=== PATIENT | female | born 1935 | race Asian ===

== ENCOUNTER 2017-08-02 02:11 | Inpatient (IN) | payer MEDICARE, OTHER ==
[~2017-08-02] VITALS: Ht 152.4 cm; Wt 47.2 kg
--- NOTE | 2017-08-02 02:20 | NUR ---
PT BIB [facility] TO ER BED 5, PT C/O ABD AND LOW B/P THAT WOKE HER UP TONIGHT. PT PLACED ON VS/SERVICENOW ADMINISTRATOR DEVELOPER. PT B/P 70/31, MD PAK AT BEDSIDE FOR EVAL. PT RESP EVEN UNLABORED/NAD NOTED/SKIN WARM AND DRY/DENIES N/V/D. PT DAUGHTER AT BEDSIDE TO HELP TRANSLATE. 16G IV TO LAC USING ASEPTIC TECH, BLOOD DRAWN FOR LAB. IV FLUSHES EASILY. 20G IV TO R WRRIST STARTED WASHER MACHINE BY PARAMEDICS. PT AOX4.
[2017-08-02] MEDS ORDERED: IV NS 0.9% 500 ML BAG IV ONE (02:30)
[2017-08-02] MEDS ORDERED: ONDANSETRON HCL/PF 4 MG/2 ML VIAL IVP ONE (02:30)
[2017-08-02] MEDS ORDERED: ONDANSETRON HCL/PF 4 MG/2 ML VIAL ONE ×2 (02:38→05:38)
--- NOTE | 2017-08-02 02:42 | NUR ---
LAB AT BEDSIDE
[2017-08-02 02:47] LABS: BASOPHILS # (AUTO) 0.1 /CMM (0.0-0.2); BASOPHILS % (AUTO) 0.6 % (0.0-2.0); EOSINOPHILS # (AUTO) 0.3 /CMM (0.0-0.7); EOSINOPHILS % (AUTO) 2.8 % (0.0-6.0); HEMATOCRIT 42 % (33-45); HEMOGLOBIN 13.4 g/dL (11.5-14.8); LYMPHOCYTES # (AUTO) 1.6 /CMM (0.8-4.8); LYMPHOCYTES % (AUTO) 16.7 % (20.0-44.0); MEAN CORPUSCULAR HEMOGLOBIN 30 PG (26.0-33.0); MEAN CORPUSCULAR HGB CONC 32 g/dl (31.0-36.0); MEAN CORPUSCULAR VOLUME 94 fL (82-100); MONOCYTES # (AUTO) 0.8 /CMM (0.1-1.30); MONOCYTES % (AUTO) 8.3 % (2.0-12.0); NEUTROPHILS # (AUTO) 6.9 /CMM (1.8-8.9); NEUTROPHILS % (AUTO) 71.6 % (43.0-81.0); PLATELET COUNT (AUTO) 270 /CMM (150-450); RDW COEFFICIENT OF VARIATION 14.6 (11.5-15.0); RED BLOOD CELL COUNT(AUTO) 4.42 MIL/uL (4.0-5.2); WHITE BLOOD COUNT (AUTO) 9.7 K/uL (4.3-11.0)
--- NOTE | 2017-08-02 02:51 | NUR ---
PT TO CT VIA STRETCHER. VSS.
[2017-08-02] MEDS ORDERED: IV NS 0.9% 1,000 ML BAG IV ONE (03:00)
--- NOTE | 2017-08-02 03:06 | NUR ---
PT BACK FROM CT.
[2017-08-02 03:17] LABS: CALCIUM, SERUM 8.9 mg/dL (8.5-10.1); CARBON DIOXIDE 23 mmol/L (21-32); CHLORIDE 106 mmol/L (98-107); CREATININE 1.1 mg/dL (0.6-1.3); GLUCOSE 200 mg/dL (74-106); POTASSIUM 3.9 mmol/L (3.5-5.1); SODIUM SERUM 140 mmol/L (136-145); UREA NITROGEN, BLOOD 15 mg/dL (7-18)
[2017-08-02 03:20] LABS: INR 1.28 (0.87-1.13); PROTHROMBIN TIME 13.3 SECS (9.5-12.7)
[2017-08-02 03:22] LABS: ALANINE AMINOTRANSFERASE 95 U/L (12-78); ALKALINE PHOSPHATASE 45 U/L (46-116); ASPARTATE AMINOTRANSFERASE 26 U/L (15-37); BILIRUBIN,DIRECT 0.1 mg/dL (0.0-0.2); BILIRUBIN,TOTAL 0.4 mg/dL (0.2-1.0); LIPASE 390 U/L (73-393); TOTAL PROTEIN, SERUM 6.4 g/dL (6.4-8.2)
[2017-08-02 03:25] LABS: TROPONIN I < 0.017 ng/mL (0.00-0.056)
--- NOTE | 2017-08-02 04:05 | NUR ---
NAMAN AT BEDSIDE
--- NOTE | 2017-08-02 04:06 | NUR ---
ULTRASOUND AT BEDSIDE
--- NOTE | 2017-08-02 04:42 | NUR ---
PT TRANSFERRED TO ER BED 9
--- NOTE | 2017-08-02 04:42 | NUR ---
Ledy escobar in ED - 08/02/17 at 0556 by JACINDA PT TRANSFERRED TO ER BED 8.
[2017-08-02] MEDS ORDERED: IV NS 0.9% 250 ML IV ONE (04:49)
[2017-08-02] MEDS ORDERED: IOHEXOL-300 100 ML VIAL IV ONE (04:49)
--- NOTE | 2017-08-02 05:05 | NUR ---
PT TO CT ON HVAC TECHNICIAN WITH RN.
[2017-08-02] MEDS ORDERED: IOHEXOL-350 100 ML VIAL IV ONE (05:07)
--- NOTE | 2017-08-02 05:23 | NUR ---
PT BACK FROM CT
--- NOTE | 2017-08-02 05:27 | NUR ---
DR. PAK AT BEDSIDE SPEAKING TO PT AND FAMILY REGARDING POC.
--- NOTE | 2017-08-02 05:30 | NUR ---
LAB AT BEDSIDE FOR BLOOD DRAW.
[2017-08-02 05:36] LABS: HEMOGLOBIN 11.9 g/dL (11.5-14.8)
[2017-08-02] MEDS ORDERED: MORPHINE SULFATE INJ 10 MG/ML DISP.SYRIN ONE (05:39)
[2017-08-02] MEDS ORDERED: MORPHINE SULFATE INJ 10 MG/ML DISP.SYRIN IV ONE (06:00)
[2017-08-02] MEDS ORDERED: ONDANSETRON HCL/PF 4 MG/2 ML VIAL IV ONE (06:00)
[2017-08-02] MEDS ORDERED: FENO145T20 PO (06:09)
[2017-08-02] MEDS ORDERED: OMEP20CA10 PO (06:09)
[2017-08-02] MEDS ORDERED: SPIR25TA4 PO (06:09)
[2017-08-02] MEDS ORDERED: RIVA10TA PO (06:09)
[2017-08-02] MEDS ORDERED: ALEN35TA5 PO (06:09)
[2017-08-02] MEDS ORDERED: GLIM1TAB2 PO (06:09)
[2017-08-02] MEDS ORDERED: FLEC100T2 PO (06:09)
[2017-08-02] MEDS ORDERED: METR500T PO (06:22)
[2017-08-02] MEDS ORDERED: CIPR-262 PO (06:22)
--- NOTE | 2017-08-02 06:22 | NUR ---
PT BEING ADMIT TO ROOM 325 BED 2. REPORT GIVEN JAVAD LIGHT RN.
--- NOTE | 2017-08-02 06:25 | NUR ---
PT REFUSED IV MEDICATED, RISK AND BENEFITS EXPLAINED X3. PT STRONGLY REFUSED "PT STATES I AM NOT IN PAIN AT THIS MOMENT, I DON'T WANT THE PAIN MEDICINE". MORPHINE 6MG, ZOFRAN 4MG WASTED WITH SECOND RN MIKE.
--- NOTE | 2017-08-02 06:27 | NUR ---
RN NOTES: RECEIVED REPORT FROM MAGGIE ALCAZAR, PT BEING ADMITTED FOR HYPOTENSION, ABDOMINAL PAIN, PT FROM HOME CAME IN FOR ABDL PAIN AND LOW BP, UPON ARRIVAL 70/31, AFTER INTERVENTION BP WENT UP TO 100/64, PT HAS 16G. ON LEFT AC, AND 20G. R WRIST, PT WILL BE ADMITTED UNDER EPIC, PER REPORT MRSA SWAB DONE, HOME MEDS INPUTTED BY WAFER LINE WORKER, AWAITING FOR PT TO BE BROUGHT TO THE UNIT, PT WILL BE GOING TO 325-2.
[2017-08-02] MEDS ORDERED: ONDANSETRON HCL/PF 4 MG/2 ML VIAL IVP PRN (06:30)
[2017-08-02] MEDS ORDERED: MAGNESIUM HYDROXIDE 30 ML UDC PO PRN (06:30)
[2017-08-02] MEDS ORDERED: ENOXAPARIN SODIUM 30 MG/0.3 ML DISP.SYRIN SQ SCH (06:30)
[2017-08-02] MEDS ORDERED: ACETAMINOPHEN 325 MG TABLET PO PRN (06:30)
[2017-08-02] MEDS ORDERED: HYDROMORPHONE INJ 2 MG/ML DISP.SYRIN IV PRN (06:30)
[2017-08-02 06:35] LABS: PHOSPHORUS 2.7 mg/dL (2.5-4.9)
--- NOTE | 2017-08-02 06:45 | NUR ---
PT TRANSPORTED TO TELE [facility] BED 2 VIA STRETCHER ON PUBLICATION DESIGNER WITH RN PER ACLS PROTOCOL. VSS.
[2017-08-02 06:48] LABS: THYROID STIMULATING HORMONE 10.778 uIU/mL (0.358-3.74)
--- NOTE | 2017-08-02 06:57 | NUR ---
RN NOTES: VS TAKEN AND RECORDED, FAMILY AT BED SIDE, PT A/O X3, ON RA RESPIRATION EVEN AND UNLABORED, STATED HER ABDOMINAL PAIN IS 3/10, ORIENTED PT TO UNIT POLICY AND HOURLY ROUNDING, SINUS RHYTHM HR 65, SAFETY PRECAUTIONS FOR FALL INITIATED CALL LIGHT IN REACH, WILL ENDORSE TO DAY RN FOR COMPLETION OF ADMISSION
[2017-08-02 06:59] VITALS: BP 118/59
--- NOTE | 2017-08-02 07:45 | NUR ---
INTEGRATED MARKETING MANAGER OPENING NOTES RECEIVED REPORT FROM CHACE NOWAK THIS MORNING. PT IN BED AWAKE IN NO ACUTE SIGNS OF DISTRESS WITH FAMILY AT BEDSIDE. A/O X 3, VERBALLY RESPONSIVE AND ABLE TO TRANSFER FROM BED TO BEDSIDE COMMODE WITH ASSISTANCE AT THIS TIME. PT ADMITTED WITH DX OF ABDOMINAL PAIN WITH SIGNIFICANT DIAGNOSIS OF GERD, CHF, CAD, AFIB, DM, OSTEOPOROSIS, HTN, HLD, DIVERTRICULITIS. PT ON TELE-MONITORING WITH CURRENT READING OF SR AND HR OF 59, NO C/O CHEST PAIN OR ABDOMINAL PAIN AT THIS TIME. PT WEARING B/L HEARING AIDS DUE TO HARD OF HEARING. ON ROOM AIR, BREATHING EVEN WITH NO S/S OF SOB NOTED. BELONGINGS LIST DONE AND FILED ON CHART. V/S TAKEN AND RECORDED. PT SKIN IS INTACT. PT WITH IV ACCESS ON LEFT AC G#16 AND RIGHT WRIST g#18, WILL START IVF OF NS AT 75ML/HR PRN. PNA AND FLU VACCINES ARE UPDATED. KEPT BED IN LOW/LOCKED POSITION WITH SIDE-RAILS UP X2. CALL LIGHT WITHIN REACH. ALL SAFETY MEASURES MAINTAINED. WILL CONTINUE TO MONITOR PT ACCORDINGLY.
[2017-08-02 08:00] VITALS: BP 118/59
[2017-08-02] MEDS ORDERED: RIVAROXABAN 10 MG TABLET PO SCH (09:00)
[2017-08-02] MEDS ORDERED: Medication Not On Formulary EA (Omeprazole 1 CAP) PO SCH (09:00)
[2017-08-02] MEDS ORDERED: ENOXAPARIN SODIUM 40 MG/0.4 ML DISP.SYRIN SQ SCH (09:00)
[2017-08-02] MEDS: FAMOTIDINE/PF INJ 20 MG/2 ML VIAL IV SCH (09:57)
--- NOTE | 2017-08-02 10:28 | NUR ---
RN NOTES CALLED DR AREVALO AND VERIFIED ORDERS OF LOVENOX 40MG AND XARELTO 10MG IF TO BE GIVEN BOTH TODAY. HE ORDER TO DISCONTINUE LOVENOX AND START ON XARELTO. PHARMACY MADE AWARE. WILL CONTINUE TO MONITOR
[2017-08-02] MEDS: SPIRONOLACTONE 25 MG TABLET PO SCH (10:33)
[2017-08-02] MEDS: GLIMEPIRIDE 1 MG TABLET PO SCH (10:34)
[2017-08-02] MEDS: FENOFIBRATE NANOCRYS (145 MG) 145 MG TABLET PO SCH (10:34)
[2017-08-02] MEDS: IV NS 0.9% 1,000 ML IV PRN (10:44)
--- NOTE | 2017-08-02 13:20 | NUR ---
RN NOTES PER DR OGLESBY, PT FOR POSSIBLE EGD TOMORROW (08/03/2017). PROCEDURE WAS EXPLAINED BY DR OGLESBY TO PT AND FAMILY MEMBERS AND THEY VERBALIZED UNDERSTANDING. EXPLAINED ALSO THAT PT WILL BE NPO AFTER MIDNIGHT. WILL CONTINUE TO MONITOR.
--- NOTE | 2017-08-02 13:28 | NUR ---
RN NOTES FAMILY ASKED IF PT WILL STILL CONTINUE ABX METRONIDAZOLE 500MG TAB TID AND CIPRO 500MG TAB. DR OGLESBY ON UNIT AND SAID TO CONTINUE SAID ANTIBIOTICS. DR OGLESBY SAID ALSO TO NOT GIVE XARELTO TODAY AND NPO POST MIDNIGHT FOR POSSIBLE EGD TOMORROW ( 07/03/2017). WILL CONTINUE TO MONITOR
[2017-08-02] MEDS: METRONIDAZOLE 500 MG TABLET PO SCH ×2 (14:06→21:11)
[2017-08-02] MEDS: CIPROFLOXACIN HCL 250 MG TABLET PO SCH ×2 (14:07→21:11)
[2017-08-02 16:00] VITALS: BP_SYST 123; BP_DIAS 67; BP_DIAS 69
[2017-08-02 16:24] VITALS: BP 122/62
--- NOTE | 2017-08-02 16:27 | NUR ---
RN NOTES PT COMPLAINTS OF N & V X1 WITH UNDIGESTED FOOD IN SMALL AMOUNT, PRN ZOFRAN 4MG IV GIVEN. WILL MONITOR EFFECTIVENESS OF MEDICATION.
[2017-08-02] MEDS ORDERED: RIVAROXABAN 15 MG TABLET PO SCH (17:00)
--- NOTE | 2017-08-02 17:17 | NUR ---
RN NOTES URINE SPECIMEN COLLECTED, CALLED LAB TO PICK -UP.
--- NOTE | 2017-08-02 17:51 | NUR ---
RN NOTES PT SIGNED CONSENT FOR POSSIBLE EGD TOMORROW. CONSENT FLAGGED ON HER CHART. WILL ENDORSED TO SOCK EXAMINER NURSE.
--- NOTE | 2017-08-02 18:49 | NUR ---
NAPHTHALENE STILL OPERATOR CLOSING NOTES PATIENT AWAKE AND RESTING AT MODERATE HIGH BACKREST IN BED. A/O X3, SAME ABLE TO VERBALIZED NEEDS AND CONCERNS. NO FURTHER C/O N & V AT THIS TIME. ON TELE-MONITORING WITH CURRENT READING OF SR AND HR OF 65, NO C/O CHEST PAIN VOICED. ON ROOM AIR, BREATHING EVEN AND UNLABORED. IV ACCESS ON LEFT AC G#16 AND RIGHT WRIST G#20 INTACT AND PATENT, IVF OF NS @ 75ML/HR RUNNING TO LEFT AC, NO SIGNS OF INFILTRATION NOTED. HOB KEPT ELEVATED. BED IN LOW/LOCKED POSITION, CALL LIGHT WITHIN REACH. PT FOR GI CONSULT AND POSSIBLE EGD TOMORROW, NPO POST MIDNIGHT TO BE ENFORCED. ALL NEEDS AND CARE ATTENDED WELL. WILL ENDORSED TO DATA STORAGE SPECIALIST NURSE FOR LOLLY.
[2017-08-02 19:11] LABS: APPEARANCE,URINE TURBID (CLEAR); BILIRUBIN,URINE NEGATIVE (NEGATIVE); BLOOD, URINE NEGATIVE Ery/uL (NEGATIVE); COLOR,URINE DARK YELLO (YELLOW); KETONES,URINE NEGATIVE (NEGATIVE); LEUKOCYTE ESTERASE ,URINE NEGATIVE (NEGATIVE); NITRITE, URINE POSITIVE (NEGATIVE); PH,URINE 5.5 (5.0-8.0); PROTEIN,URINE TRACE mg/dl (NEGATIVE); UGLUCOSE TRACE mg/dL (NEGATIVE); UROBILINOGEN,URINE 0.2 EU/dL (0.2)
[2017-08-02 19:23] LABS: BACTERIA,URINE Moderate /HPF (None Seen); RBC,URINE 0-2 /HPF (0-2); SQUAMOUS EPITHELIAL CELL,UR Rare /HPF (None Seen); WBC,URINE 0-2 /HPF (0-3)
[2017-08-02 19:24] LABS: URINE AMORPHOUS URATE Many /HPF (None Seen)
--- NOTE | 2017-08-02 19:30 | NUR ---
PATTERNMAKER SAMPLE OPENING NOTES: PATIENT IN BED EATING DINNER, AOX3, SPEAKS IN HAITIAN, ON ROOM AIR, BREATHING EVEN AND UNLABORED. APPEARS CALM AND IN NO DISTRESS, DENIES ANY NAUSEA AT THIS TIME, ONLY SOME MILD EPIGASTRIC PAIN AT THIS TIME, SCALED AT 3-4/10. PIV OVER LAC G16 INTACT AND PATENT TO FLUSH, R WRIST G 20 INTACT AND INFUSING WELL WITH NS RUNNING AT 75 ML/HR. ON TELE MONITORING: SR RATE OF 67. PROVIDED FOR COMFORT AND SAFETY. BED IN LOWEST AND LOCKED POSITION, CALL LIGHT WITHIN REACH. WILL CONT TO MONITOR.
--- NOTE | 2017-08-02 19:50 | NUR ---
RN NOTES: CLEMENT CASTILLO FOR EVELIA MUNGUIA, CAME TO SEE PT. FAMILY AT BEDSIDE.
[2017-08-02 20:00] VITALS: BP 136/70
--- NOTE | 2017-08-02 20:23 | NUR ---
RN NOTES: PER CLEMENT CASTILLO (GI), EGD WILL NOT BE DONE TOMORROW, MOST LIKELY WILL BE DONE ON THURSDAY. PATIENT CAN CONTINUE DIET UNTIL TOMORROW, WHEN SHE WILL BE NPO POST MN.
--- NOTE | 2017-08-02 21:30 | NUR ---
RN NOTES: SAW CLEMENT CASTILLO NOTES IN [facility], FOR POSSIBLE EGD IN AM. CHARGE NURSE MADE AWARE RE WHAT WAS SAID VERBALLY BY CONTINUOUS ABSORPTION PROCESS OPERATOR AND WHAT WAS WRITTEN. PATIENT TO BE NPO POST MN FOR NOW.
[2017-08-03] VITALS (9 sets, daily range): BP systolic 85–118; BP diastolic 60–74
[2017-08-03] MEDS: IV NS 0.9% 1,000 ML IV PRN (00:06)
[2017-08-03] MEDS: METRONIDAZOLE 500 MG TABLET PO SCH ×3 (05:00→21:53)
[2017-08-03 06:34] LABS: BASOPHILS # (AUTO) 0.1 /CMM (0.0-0.2); BASOPHILS % (AUTO) 1.3 % (0.0-2.0); EOSINOPHILS # (AUTO) 0.2 /CMM (0.0-0.7); EOSINOPHILS % (AUTO) 3.2 % (0.0-6.0); HEMATOCRIT 37 % (33-45); HEMOGLOBIN 12.3 g/dL (11.5-14.8); LYMPHOCYTES % (AUTO) 14.8 % (20.0-44.0); MEAN CORPUSCULAR HEMOGLOBIN 32 PG (26.0-33.0); MEAN CORPUSCULAR HGB CONC 34 g/dl (31.0-36.0); MEAN CORPUSCULAR VOLUME 95 fL (82-100); MONOCYTES # (AUTO) 0.7 /CMM (0.1-1.30); NEUTROPHILS # (AUTO) 4.8 /CMM (1.8-8.9); NEUTROPHILS % (AUTO) 70.7 % (43.0-81.0); PLATELET COUNT (AUTO) 261 /CMM (150-450); RDW COEFFICIENT OF VARIATION 14.9 (11.5-15.0); RED BLOOD CELL COUNT(AUTO) 3.89 MIL/uL (4.0-5.2); WHITE BLOOD COUNT (AUTO) 6.8 K/uL (4.3-11.0)
--- NOTE | 2017-08-03 06:43 | NUR ---
TERMITE CONTROL TECHNICIAN CLOSING NOTES: PATIENT IN BED, AOX3, ON ROOM AIR, BREATHING EVEN AND UNLABORED. APPEARS CALM AND IN NO DISTRESS. ON TELE MONITOR: SR AT RATE OF 60S. PIV OVER LAC G 16 INTACT AND PATENT, INFUSING WELL WITH NS RUNNING AT 75 ML/HR. DUE MEDS GIVEN. PROVIDED FOR COMFORT AND SAFETY. BED IN LOWEST AND LOCKED POSITION, SIDERAILS UPX2. MAINTAINED ON NPO POST MN. WILL ENDORSE TO AM RN FOR LOLLY.
[2017-08-03 06:50] LABS: ALANINE AMINOTRANSFERASE 74 U/L (12-78); ALBUMIN 2.9 g/dL (3.4-5.0); ALKALINE PHOSPHATASE 40 U/L (46-116); ASPARTATE AMINOTRANSFERASE 29 U/L (15-37); BILIRUBIN,TOTAL 0.4 mg/dL (0.2-1.0); CALCIUM, SERUM 8.4 mg/dL (8.5-10.1); CARBON DIOXIDE 22 mmol/L (21-32); CHLORIDE 108 mmol/L (98-107); GLUCOSE 87 mg/dL (74-106); MAGNESIUM 1.9 mg/dL (1.8-2.4); PHOSPHORUS 2.6 mg/dL (2.5-4.9); POTASSIUM 3.9 mmol/L (3.5-5.1); SODIUM SERUM 139 mmol/L (136-145); UREA NITROGEN, BLOOD 16 mg/dL (7-18)
[2017-08-03 06:51] LABS: TROPONIN I 0.199 ng/mL (0.00-0.056)
--- NOTE | 2017-08-03 06:56 | NUR ---
RN NOTES: CALLED DR AZEVEDO'S OFFICE TO VERIFY IF PATIENT WILL HAVE EGD TODAY OR TOMORROW ( SAID BY SWEATBAND DRUMMER). AWAITING CALL BACK. PATIENT ON NPO SINCE MN.
--- NOTE | 2017-08-03 07:30 | NUR ---
APPRENTICESHIP CONSULTANT NOTES PT IN BED, ASLEEP, EASY TO AROUSE, NO SIGN OF PAIN OR ANY DISCOMFORT, RESPIRATIONS NORMAL, CALL LIGHT WITHIN REACH.
[2017-08-03] MEDS: GLIMEPIRIDE 1 MG TABLET PO SCH (09:02)
[2017-08-03] MEDS: FENOFIBRATE NANOCRYS (145 MG) 145 MG TABLET PO SCH (09:02)
[2017-08-03] MEDS: CIPROFLOXACIN HCL 250 MG TABLET PO SCH ×2 (09:02→21:53)
[2017-08-03] MEDS: FAMOTIDINE/PF INJ 20 MG/2 ML VIAL IV SCH (09:02)
[2017-08-03] MEDS: FUROSEMIDE 20 MG/2 ML VIAL IV SCH ×3 (09:02→17:00)
[2017-08-03] MEDS: LEVOTHYROXINE SODIUM 125 MCG TABLET PO SCH (09:03)
[2017-08-03] MEDS: POTASSIUM CHLORIDE 20 MEQ TAB.PRT.SR PO SCH (09:03)
[2017-08-03] MEDS: SPIRONOLACTONE 25 MG TABLET PO SCH (09:03)
--- NOTE | 2017-08-03 14:58 | NUR ---
JBOSS ARCHITECT NOTES PT'S TELE AFIB NOW, HR BET 110-125 WITH EPISODES 135-140 FOR FEW SECONDS, PT IN BED, NO COMPLAINT OF CHEST PAIN, NO SHORTNESS OF BREATH, BP 107/61, SABINO PROFESSOR OF POULTRY SCIENCE INFORMED, ORDERED TO GET EKG NOW AND REPEAT TROP AFTER SIX HOURS, NOTED AND CARRIED OUT.
[2017-08-03] MEDS ORDERED: AMIODARONE 150 MG in IV D5W 100 ML IV ONE (16:00)
[2017-08-03] MEDS ORDERED: AMIODARONE 900 MG in IV D5W 482 ML IV PRN (16:00)
--- NOTE | 2017-08-03 16:30 | NUR ---
VENTILATING ENGINEER NOTES SABINO BASKETBALL PLAYER AND DR. AREVALO INFORMED OF PT'S ELEVATED HR AND LATEST TROPONIN AND EKG RESULT, DR. AREVALO ORDERED AMIODARONE BOLUS AND DRIP AND TO TRANSFER PT TO [facility], PT REMAINS CALM, NO COMPLAINT OF CHEST PAIN, NO SHORTNESS OF BREATH, VITAL SIGNS REMAIN STABLE, INFORMED OF TRANSFER ORDERS, DAUGHTER BRYAN INFORMED THRU VOICEMAIL, REPORT GIVEN TO SHAISTA DRY PAN FEEDER, TRANSFERRED PT TO [facility] ROOM 259 IN STABLE CONDITION WITH ALL BELONGINGS.
--- NOTE | 2017-08-03 16:30 | NUR ---
ALARM SECURITY OR SURVEILLANCE MONITOR NOTE Received report from Telemetry and patient arrived on unit at 16:30 accompanied by RN. Patient alert and oriented. Atrial fibrillation at 122 bpm. Gave amiodarone bolus over 10 minutes and started amidarone drip at 17:00 at 33.3 ml/hr. Lasix held due to SBP 85. Physical assessment done. Daughter came in shortly after patient arrived. Will continue to monitor BP and HR.
--- NOTE | 2017-08-03 18:40 | NUR ---
DIAL MAKER NOTE Report was given to [facility] RN and patient was transferred to Room 117 at 18:30 on monitor via bed. Daughter was with her during transfer.
--- NOTE | 2017-08-03 19:00 | NUR ---
JO[facility]/RN: Assisted with pt transfer to [facility] unit. A-fib 110's on monitor. IV x2 DC'd, pt c/o pain upon flushing. New IV HL inserted R FA #20 x1 attempt. Amiodarone drip infusing well. Oriented to POC, call light within reach. Will endorse care to PM RN for LOLLY.
--- NOTE | 2017-08-03 19:20 | NUR ---
RN INITIAL NOTE RECEIVED PT IN NO ACUTE DISTRESS IN BED. PT IS A/O X 4 AND ABLE TO MAKE NEEDS KNOWN. PT IS TAGOLOG SPEAKING BUT IS ABLE TO UNDERSTAND SOME ALBANIAN. PT IS ON RA AND TOLERATING WELL WITH O2 SAT @ 100%. PT IS ON TELE WITH UNCONTROLLED AFIB @ 120-130. PT IS CURRENTLY ON AMIODARONE @ 0.998 MG/MIN. PT HAS RFA 20G THAT IS CLEAN DRY INTACT AND PATENT WITH AMIODARONE DRIP. BED IN LOW LOCK POSITION WITH RIALS UP X 2. CALL LIGHT WITHIN REACH AND ALL SAFETY MEASURES ENSURED AND CARRIED OUT. WILL CONTINUE TO MONITOR PT.
[2017-08-03] MEDS: MAG HYDROX/AL HYDROX/SIMETH 30 ML UDC PO PRN (20:19)
[2017-08-04] VITALS (9 sets, daily range): BP systolic 91–111; BP diastolic 55–72
[2017-08-04] MEDS: METRONIDAZOLE 500 MG TABLET PO SCH ×3 (05:14→20:58)
[2017-08-04 05:30] LABS: BASOPHILS # (AUTO) 0.1 /CMM (0.0-0.2); BASOPHILS % (AUTO) 0.7 % (0.0-2.0); EOSINOPHILS # (AUTO) 0.2 /CMM (0.0-0.7); EOSINOPHILS % (AUTO) 2.6 % (0.0-6.0); HEMATOCRIT 41 % (33-45); HEMOGLOBIN 13.4 g/dL (11.5-14.8); LYMPHOCYTES # (AUTO) 1.2 /CMM (0.8-4.8); LYMPHOCYTES % (AUTO) 14.2 % (20.0-44.0); MEAN CORPUSCULAR HEMOGLOBIN 31 PG (26.0-33.0); MEAN CORPUSCULAR HGB CONC 33 g/dl (31.0-36.0); MEAN CORPUSCULAR VOLUME 93 fL (82-100); MONOCYTES % (AUTO) 11.2 % (2.0-12.0); NEUTROPHILS # (AUTO) 6.3 /CMM (1.8-8.9); NEUTROPHILS % (AUTO) 71.3 % (43.0-81.0); PLATELET COUNT (AUTO) 307 /CMM (150-450); RDW COEFFICIENT OF VARIATION 14.9 (11.5-15.0); RED BLOOD CELL COUNT(AUTO) 4.37 MIL/uL (4.0-5.2); WHITE BLOOD COUNT (AUTO) 8.8 K/uL (4.3-11.0)
[2017-08-04 05:48] LABS: ALANINE AMINOTRANSFERASE 63 U/L (12-78); ALBUMIN 2.9 g/dL (3.4-5.0); ALKALINE PHOSPHATASE 45 U/L (46-116); ASPARTATE AMINOTRANSFERASE 23 U/L (15-37); BILIRUBIN,TOTAL 0.5 mg/dL (0.2-1.0); CARBON DIOXIDE 26 mmol/L (21-32); CHLORIDE 107 mmol/L (98-107); GLUCOSE 121 mg/dL (74-106); PHOSPHORUS 2.5 mg/dL (2.5-4.9); SODIUM SERUM 141 mmol/L (136-145); TOTAL PROTEIN, SERUM 6.2 g/dL (6.4-8.2); UREA NITROGEN, BLOOD 13 mg/dL (7-18)
[2017-08-04 05:50] LABS: TROPONIN I 0.093 ng/mL (0.00-0.056)
--- NOTE | 2017-08-04 06:19 | NUR ---
RN CLOSING NOTE PT REMAINS IN NO ACUTE DISTRESS IN BED. PT DID NOT HAVE ANY SIGNIFICANT CHANGE IN CONDITION DURING SHIFT. ALL NEEDS MET, ALL ORDERS CARRIED OUT. WILL ENDORSE CARE TO AM RN FOR CONTINUITY OF CARE.
--- NOTE | 2017-08-04 07:05 | NUR ---
RN INITIAL NOTES RECEIVED PT AWAKE, A/OX4. NO RESPIRATORY DISTRESS NOTED. NO SOB NOTED. ON ROOM AIR. DENIES ANY PAIN. ON TELE MONITOR, A.FIB AT 115. PT ON AMIO DRIP. IV LINE IN PLACE. SKIN INTACT. PLAN FOR EGD ONCE TROPONIN TRENDS DOWN PER DR. AREVALO AND DR. AZEVEDO. PT COMFORTABLE. CALL LIGHT WITHIN REACH. WILL MONITOR.
[2017-08-04] MEDS: GLIMEPIRIDE 1 MG TABLET PO SCH (08:14)
[2017-08-04] MEDS: LEVOTHYROXINE SODIUM 125 MCG TABLET PO SCH (08:14)
[2017-08-04] MEDS: POTASSIUM CHLORIDE 20 MEQ TAB.PRT.SR PO SCH (08:14)
[2017-08-04] MEDS: FUROSEMIDE 20 MG/2 ML VIAL IV SCH ×2 (08:14→16:59)
[2017-08-04] MEDS: FENOFIBRATE NANOCRYS (145 MG) 145 MG TABLET PO SCH (08:15)
[2017-08-04] MEDS: CIPROFLOXACIN HCL 250 MG TABLET PO SCH ×2 (08:15→20:58)
[2017-08-04] MEDS: SPIRONOLACTONE 25 MG TABLET PO SCH (08:15)
[2017-08-04] MEDS: FAMOTIDINE/PF INJ 20 MG/2 ML VIAL IV SCH (08:15)
--- NOTE | 2017-08-04 10:10 | NUR ---
RN NOTES SEEN AND EXAMINED BY DR. AREVALO. PT ON AMIO DRIP. PT STILL ON A.FIB UNCONTROLLED. AWARE OF CURRENT LAB VALUES. TROPONIN 0.093, TRENDING DOWN. SPOKE WITH DR. AZEVEDO AND CLEARED PT FOR EGD. ORDERS MADE, NOTED AND CARRIED OUT. PT AWARE.
--- NOTE | 2017-08-04 10:30 | NUR ---
RN NOTES PT LEFT FOR EGD VIA BED. PT A/OX4. DENIES ANY PAIN. IV LINE IN PLACE. VITAL SIGNS WNL. LEFT IN STABLE CONDITION.
[2017-08-04] MEDS: PANTOPRAZOLE 40 MG TABLET.DR PO SCH (11:50)
[2017-08-04] MEDS: SUCRALFATE 1 G TABLET PO SCH ×3 (11:50→20:58)
[2017-08-04] MEDS: METOPROLOL TARTRATE 50 MG TABLET PO SCH ×2 (11:50→17:02)
--- NOTE | 2017-08-04 11:58 | NUR ---
RN NOTES PT BACK FROM EGD. PT A/OX4. ON ROOM AIR. NO SOB NOTED. DENIES ANY PAIN. VS WNL. WILL ADVANCE DIET TOLERATED. WILL MONITOR
--- NOTE | 2017-08-04 12:00 | NUR ---
RN NOTES SEEN AND EXAMINED BY DR. RODRIGUEZ. AWARE OF CURRENT LAB VALUES. NO ORDER MADE
[2017-08-04] MEDS ORDERED: GUAIFENESIN/CODEINE 10 ML UDC PO PRN (15:30)
[2017-08-04] MEDS: MAG HYDROX/AL HYDROX/SIMETH 30 ML UDC PO PRN (16:29)
--- NOTE | 2017-08-04 18:28 | NUR ---
RN CLOSING NOTES PT REMAINS STABLE. NO SIGNIFICANT CHANGE NOTED. DENIES ANY PAIN. IV LINE IN PLACE. ASSISTED TO BATHROOM. PT CONTINENT. ALL NEEDS ATTENDED AND MET. KEPT COMFORTABLE. CALL LIGHT WITHIN REACH. WILL ENDORSE FOR CONTINUITY OF CARE.
--- NOTE | 2017-08-04 20:37 | NUR ---
RN NOTE. INITIAL ASSESSMENT. RECEIVED THE PT REST ON THE BED. AWAKE, ALERT, FOLLOW COMMANDS. MOTION STUDY ANALYST SHOWING AFIB. PT ON ROOM AIR. SAT 98%. IV RT HAND 20G. SALINE LOCK. TURN AND REPOSITION PT INDEPENDENT. WILL CONTINUE TO MONITOR VITALS.
[2017-08-04] MEDS: HYDROCODONE/APAP 5/325MG 1 EACH TABLET PO PRN (20:59)
[2017-08-05] VITALS: BP_SYST 83; BP_SYST 90; BP_DIAS 50; BP_DIAS 57
--- NOTE | 2017-08-05 00:53 | NUR ---
RN NOTE LOPRESSOR NOT GIVEN. BP 90/50.
--- NOTE | 2017-08-05 03:09 | NUR ---
AM CARE. ORAL CARE, BED BATH GIVEN. HOB ELEVATED. PT ON ROOM AIR. SAT 97%. NO ACUTE DISTRESS NOTED. SHANK TURNER SHOWING AFIB, HPB ELEVATED.WILL CONTINUE TO MONITOR VITALS.
[2017-08-05 04:00] VITALS: BP 92/55
[2017-08-05] MEDS: METRONIDAZOLE 500 MG TABLET PO SCH ×3 (05:01→20:05)
[2017-08-05] MEDS: METOPROLOL TARTRATE 50 MG TABLET PO SCH ×5 (06:00→23:19)
--- NOTE | 2017-08-05 06:17 | NUR ---
LOPRESSOR NOT GIVEN BP 90/55
[2017-08-05 08:00] VITALS: BP 99/50
--- NOTE | 2017-08-05 08:05 | NUR ---
RN NOTE LEFT MESSAGE FOR DR AREVALO REGARDING PT HR 120S-130S AFIB, BP 99/50 MMHG. WILL MONITOR PT.
[2017-08-05] MEDS: FUROSEMIDE 20 MG/2 ML VIAL IV SCH ×2 (08:29→16:25)
[2017-08-05] MEDS: GLIMEPIRIDE 1 MG TABLET PO SCH (08:29)
[2017-08-05] MEDS: FAMOTIDINE/PF INJ 20 MG/2 ML VIAL IV SCH (08:29)
[2017-08-05] MEDS: SPIRONOLACTONE 25 MG TABLET PO SCH (08:30)
[2017-08-05] MEDS: FENOFIBRATE NANOCRYS (145 MG) 145 MG TABLET PO SCH (08:30)
[2017-08-05] MEDS: POTASSIUM CHLORIDE 20 MEQ TAB.PRT.SR PO SCH (08:30)
[2017-08-05] MEDS: SUCRALFATE 1 G TABLET PO SCH ×4 (08:30→21:12)
[2017-08-05] MEDS: LEVOTHYROXINE SODIUM 125 MCG TABLET PO SCH (08:30)
[2017-08-05] MEDS: CIPROFLOXACIN HCL 250 MG TABLET PO SCH ×2 (08:33→20:05)
[2017-08-05] MEDS: PANTOPRAZOLE 40 MG TABLET.DR PO SCH (08:34)
[2017-08-05] MEDS ORDERED: DIGOXIN INJ 0.5 MG/2 ML AMPUL IV STA (09:25)
[2017-08-05] MEDS: HYDROCODONE/APAP 5/325MG 1 EACH TABLET PO PRN (11:13)
[2017-08-05 12:00] VITALS: BP_SYST 98; BP_DIAS 51; BP_DIAS 54
[2017-08-05] MEDS ORDERED: IV NS 0.9% 500 ML BAG IV ONE (14:00)
[2017-08-05] MEDS: MAG HYDROX/AL HYDROX/SIMETH 30 ML UDC PO PRN ×2 (15:02→20:03)
[2017-08-05 16:00] VITALS: BP 99/45
[2017-08-05] MEDS: DIGOXIN INJ 0.5 MG/2 ML AMPUL IV SCH ×2 (16:18→21:13)
[2017-08-05] MEDS ORDERED: RIVAROXABAN 15 MG TABLET PO SCH (17:00)
[2017-08-05] MEDS ORDERED: AMIODARONE 900 MG in IV D5W 482 ML IV PRN (18:30)
--- NOTE | 2017-08-05 19:50 | NUR ---
PLYWOOD LAYUP LINE BACK FEEDER INITIAL NOTE PT IN NO ACUTE DISTRESS AT THIS TIME. ON TELE WITH HR OF ST 100-110. A/O X 3 AND ABLE TO MAKE NEEDS KNOWN. PT HAS A RFA 22G THAT IS LEAN DRY AND INTACT. WILL CONTINUE TO MONITOR HR ON TELE. COMFORT AND SAFETY MEASURES TO BE ENSURED DURING THE SHIFT. WILL CONTINUE TO MONITOR FOR CHANGES.
[2017-08-05 20:00] VITALS: BP 97/59
[2017-08-06] VITALS: BP 100/62
--- NOTE | 2017-08-06 00:42 | NUR ---
LOPRESSOR NOT GIVEN. BP 100/54.
[2017-08-06 04:00] VITALS: BP 96/60
[2017-08-06] MEDS: METOPROLOL TARTRATE 50 MG TABLET PO SCH ×2 (05:01→12:00)
[2017-08-06] MEDS: METRONIDAZOLE 500 MG TABLET PO SCH ×2 (05:22→12:10)
[2017-08-06] MEDS: LEVOTHYROXINE SODIUM 125 MCG TABLET PO SCH (06:46)
[2017-08-06] MEDS: PANTOPRAZOLE 40 MG TABLET.DR PO SCH (06:46)
[2017-08-06] MEDS: SUCRALFATE 1 G TABLET PO SCH ×2 (06:46→12:11)
[2017-08-06 07:13] LABS: BASOPHILS % (AUTO) 0.3 % (0.0-2.0); EOSINOPHILS # (AUTO) 0.1 /CMM (0.0-0.7); EOSINOPHILS % (AUTO) 0.9 % (0.0-6.0); HEMATOCRIT 45 % (33-45); HEMOGLOBIN 14.9 g/dL (11.5-14.8); LYMPHOCYTES # (AUTO) 1.2 /CMM (0.8-4.8); LYMPHOCYTES % (AUTO) 9.8 % (20.0-44.0); MEAN CORPUSCULAR HEMOGLOBIN 31 PG (26.0-33.0); MEAN CORPUSCULAR HGB CONC 33 g/dl (31.0-36.0); MEAN CORPUSCULAR VOLUME 93 fL (82-100); MONOCYTES % (AUTO) 8.5 % (2.0-12.0); NEUTROPHILS # (AUTO) 9.5 /CMM (1.8-8.9); NEUTROPHILS % (AUTO) 80.5 % (43.0-81.0); PLATELET COUNT (AUTO) 303 /CMM (150-450); RDW COEFFICIENT OF VARIATION 14.7 (11.5-15.0); WHITE BLOOD COUNT (AUTO) 11.9 K/uL (4.3-11.0)
[2017-08-06 07:34] LABS: CALCIUM, SERUM 8.7 mg/dL (8.5-10.1); CARBON DIOXIDE 25 mmol/L (21-32); CHLORIDE 102 mmol/L (98-107); GLUCOSE 120 mg/dL (74-106); POTASSIUM 4.2 mmol/L (3.5-5.1); SODIUM SERUM 137 mmol/L (136-145); UREA NITROGEN, BLOOD 15 mg/dL (7-18)
--- NOTE | 2017-08-06 07:36 | NUR ---
DOOR TO DOOR LEAD GENERATION NOTE PATIENT IN BED , RESTING COMFORTABLY AT THIS TIME , ON TELE MONITOR AFIB HR 92 . RESPIRATION EVEN UNLABORED , BED IN LOWEST AD LOCKED POSITION , CALL LIGHT WITHIN REACH. RT FA HL INTACT, NO S\S INFECTION NOTED ,NO C\O PAIN OR DISCOMFORT AT THIS TIME .WILL CONT TO MONITOR CLOSELY
[2017-08-06 08:00] VITALS: BP 101/57
[2017-08-06] MEDS: GLIMEPIRIDE 1 MG TABLET PO SCH (08:26)
[2017-08-06] MEDS: SPIRONOLACTONE 25 MG TABLET PO SCH (08:27)
[2017-08-06] MEDS: CIPROFLOXACIN HCL 250 MG TABLET PO SCH (08:27)
[2017-08-06] MEDS: FENOFIBRATE NANOCRYS (145 MG) 145 MG TABLET PO SCH (08:28)
[2017-08-06] MEDS: POTASSIUM CHLORIDE 20 MEQ TAB.PRT.SR PO SCH (08:28)
[2017-08-06] MEDS: FAMOTIDINE/PF INJ 20 MG/2 ML VIAL IV SCH (08:29)
[2017-08-06] MEDS: FUROSEMIDE 20 MG/2 ML VIAL IV SCH (08:33)
[2017-08-06] MEDS ORDERED: Rivaroxaban PO (09:59)
[2017-08-06] MEDS ORDERED: PANT40TA2 PO (09:59)
[2017-08-06] MEDS ORDERED: SUCR1TAB PO (09:59)
[2017-08-06 12:00] VITALS: BP 93/61
--- NOTE | 2017-08-06 12:19 | NUR ---
KNITTED GOODS SHAPER NOTE SEEN BY DR EDMOND WITH ORDER TO D\C HOME WIT HOME HEALTH ,ORDER CARRIED OUR
[2017-08-06] MEDS ORDERED: Digoxin PO (12:21)
[2017-08-06] MEDS ORDERED: DIGOXIN 0.25 MG TABLET PO SCH (13:00)
--- NOTE | 2017-08-06 14:00 | NUR ---
IMPREGNATING TANK OPERATOR NOTE PER DR BYERS ORDER OK TO DISCHARGE HOME WITH HOME HEALTH ,COLE REDRAWER NOTIFIED, WILL BE [facility] , ALL INFORMATION GIVEN TO FOLLOW UP APPOINTMENTS ,AND HOME HEALTH BY REDRAWER COLE . INSTRUCTED TO FOLLOW UP WITH DR AREVALO, PRIMARY CARE DOCTOR AND DR JOLLY ALTAMIRANO , PHONE NUMBER GIVEN , NEW PX GIVEN EXPLAINED ABOUT NEW MEDS AND POSSIBLE SIDE EFFECTS, TELE REMOVED , BELONGING SIGNED BY SON IN [facility] , MEDS FROM PHARMACY GIVEN TO HIM , HL REMOVED ,NO BLEEDING NOTED ,WENT TO [facility] ON W\C WITH STABLE CONDITION ACCOMPANIED BY DROP CLIPPER AND SON IN [facility]
[2017-08-07] MEDS ORDERED: ALENDRONATE 70 MG TABLET PO SCH (07:30)
== END 2017-08-06 16:07 | disposition home health service (06) | DRG 383 ==
LOC: ER 02:13 → TELE 06:18 → ICU 08-03 16:11 → TELE-TD 08-03 18:16 → TELE1 08-04 11:02
PROVIDERS: ADMIT Nurse Practitioner Acute Care; ATTEND Nurse Practitioner Acute Care
PROC: 0DD78ZX Extraction of Stomach, Pylorus, Via Natural or Artificial Opening Endoscopic, Diagnostic (ICD-10-PCS; principal; 2017-08-04 11:10)
DX: K25.9 Gastric ulcer, unspecified as acute or chronic, without hemorrhage or perforation (principal); I21.4 Non-ST elevation (NSTEMI) myocardial infarction; D68.59 Other primary thrombophilia; D68.9 Coagulation defect, unspecified; I50.32 Chronic diastolic (congestive) heart failure; I11.0 Hypertensive heart disease with heart failure; E27.8 Other specified disorders of adrenal gland; K57.90 Diverticulosis of intestine, part unspecified, without perforation or abscess without bleeding; K21.9 Gastro-esophageal reflux disease without esophagitis; E03.9 Hypothyroidism, unspecified; E11.9 Type 2 diabetes mellitus without complications; E78.5 Hyperlipidemia, unspecified; I70.0 Atherosclerosis of aorta; Z79.899 Other long term (current) drug therapy; Z87.11 Personal history of peptic ulcer disease; Z79.84 Long term (current) use of oral hypoglycemic drugs; I48.0 Paroxysmal atrial fibrillation; K80.20 Calculus of gallbladder without cholecystitis without obstruction; N20.0 Calculus of kidney; T46.2X5A Adverse effect of other antidysrhythmic drugs, initial encounter; Y92.009 Unspecified place in unspecified non-institutional (private) residence as the place of occurrence of the external cause
CPT/HCPCS: 36415; 71010-TC; 76705-TC; 80048-TC; 80053-TC; 80061-TC; 80076-TC; 81000-TC; 82306; 82728-TC; 83540-TC; 83690-TC; 83735-TC; 84100-TC; 84439-TC; 84443-TC; 84484-TC; 85025-TC; 85027-TC; 85730-TC; 86850-TC; 87081-TC; 87086-TC; 88305-TC; 88313-TC; 88342; 93307-TC; A4606; J0282; J1160; J1170; J1650; J1940; J2270; J2405; J3490; J7030; J7040; J7050; J7060; Q9967; Z7610

== ENCOUNTER 2018-05-24 22:51 | Inpatient (IN) | payer MEDICARE, OTHER ==
[~2018-05-24] VITALS: Ht 160 cm; Wt 44.5 kg
[~2018-05-24 22:51] MED LIST: ALEN35TA5 PO; CIPR-262 PO; Digoxin PO; FENO145T35 PO; FLEC100T2 PO; GLIM1TAB2 PO; METR500T PO; OMEP20CA10 PO; PANT40TA2 PO; Rivaroxaban PO; SPIR25TA6 PO; SUCR1TAB PO
[2018-05-24] MEDS ORDERED: CEFTRIAXONE 1 G VIAL ONE (23:24)
[2018-05-24] MEDS ORDERED: PANTOPRAZOLE 80 MG in IV NS 0.9% 500 ML IV ONE (23:30)
[2018-05-24] MEDS ORDERED: PANTOPRAZOLE 80 MG in IV NS 0.9% 100 ML IV ONE (23:30)
[2018-05-24] MEDS ORDERED: PANTOPRAZOLE 40 MG VIAL ONE (23:34)
[2018-05-25] VITALS (44 sets, daily range): BP systolic 85–166; BP diastolic 42–97
[2018-05-25 00:17] LABS: BASOPHILS # (AUTO) 0.1 /CMM (0.0-0.2); BASOPHILS % (AUTO) 1.1 % (0.0-2.0); EOSINOPHILS % (AUTO) 5.7 % (0.0-6.0); HEMATOCRIT 36 % (33-45); HEMOGLOBIN 11.7 g/dL (11.5-14.8); LYMPHOCYTES % (AUTO) 18.1 % (20.0-44.0); MEAN CORPUSCULAR HEMOGLOBIN 32 PG (26.0-33.0); MEAN CORPUSCULAR HGB CONC 32 g/dl (31.0-36.0); MEAN CORPUSCULAR VOLUME 98 fL (82-100); MONOCYTES # (AUTO) 0.4 /CMM (0.1-1.30); MONOCYTES % (AUTO) 7.9 % (2.0-12.0); NEUTROPHILS # (AUTO) 3.8 /CMM (1.8-8.9); NEUTROPHILS % (AUTO) 67.2 % (43.0-81.0); PLATELET COUNT (AUTO) 182 /CMM (150-450); RDW COEFFICIENT OF VARIATION 15.1 (11.5-15.0); RED BLOOD CELL COUNT(AUTO) 3.69 MIL/uL (4.0-5.2); WHITE BLOOD COUNT (AUTO) 5.6 K/uL (4.3-11.0)
[2018-05-25 00:22] LABS: CALCIUM, SERUM 8.6 mg/dL (8.5-10.1); CARBON DIOXIDE 22 mmol/L (21-32); CHLORIDE 107 mmol/L (98-107); GLUCOSE 171 mg/dL (74-106); POTASSIUM 3.6 mmol/L (3.5-5.1); SODIUM SERUM 139 mmol/L (136-145); UREA NITROGEN, BLOOD 36 mg/dL (7-18)
[2018-05-25 00:26] LABS: INR 1.03 (0.87-1.13)
[2018-05-25 00:27] LABS: ALANINE AMINOTRANSFERASE 86 U/L (12-78); ALBUMIN 3.1 g/dL (3.4-5.0); ALKALINE PHOSPHATASE 111 U/L (46-116); ASPARTATE AMINOTRANSFERASE 43 U/L (15-37); BILIRUBIN,DIRECT 0.1 mg/dL (0.0-0.2); BILIRUBIN,TOTAL 0.3 mg/dL (0.2-1.0); LIPASE 438 U/L (73-393); TOTAL PROTEIN, SERUM 6.2 g/dL (6.4-8.2)
[2018-05-25 00:30] LABS: TROPONIN I < 0.017 ng/mL (0.00-0.056)
[2018-05-25] MEDS ORDERED: FERR325T23 PO (02:00)
[2018-05-25] MEDS ORDERED: METO50TA16 PO (02:00)
[2018-05-25] MEDS ORDERED: DICY10CA13 PO (02:00)
[2018-05-25] MEDS ORDERED: ATOR40TA PO (02:00)
[2018-05-25] MEDS ORDERED: APIX2.5T PO (02:00)
[2018-05-25] MEDS ORDERED: METO-295 PO (02:00)
[2018-05-25] MEDS ORDERED: ACETAMINOPHEN 325 MG TABLET PO PRN (03:30)
[2018-05-25] MEDS ORDERED: ONDANSETRON HCL/PF 4 MG/2 ML VIAL IVP PRN (03:30)
[2018-05-25] MEDS ORDERED: FUROSEMIDE 20 MG/2 ML VIAL IV SCH (04:00)
[2018-05-25 06:36] LABS: BASOPHILS % (AUTO) 0.6 % (0.0-2.0); EOSINOPHILS % (AUTO) 5.1 % (0.0-6.0); HEMATOCRIT 37 % (33-45); LYMPHOCYTES # (AUTO) 1.4 /CMM (0.8-4.8); MEAN CORPUSCULAR HEMOGLOBIN 32 PG (26.0-33.0); MEAN CORPUSCULAR HGB CONC 32 g/dl (31.0-36.0); MEAN CORPUSCULAR VOLUME 99 fL (82-100); MONOCYTES # (AUTO) 0.5 /CMM (0.1-1.30); MONOCYTES % (AUTO) 7.5 % (2.0-12.0); NEUTROPHILS # (AUTO) 4.7 /CMM (1.8-8.9); NEUTROPHILS % (AUTO) 66.8 % (43.0-81.0); PLATELET COUNT (AUTO) 155 /CMM (150-450); RDW COEFFICIENT OF VARIATION 15.2 (11.5-15.0); RED BLOOD CELL COUNT(AUTO) 3.77 MIL/uL (4.0-5.2)
[2018-05-25 06:50] LABS: ABG BASE EXCESS -10.8 mmol/L; ABG OXYGEN SATURATION 78.9 % (92.0-98.5); ABG PCO2 53.1 mmHg (35.0-45.0); ABG PH 7.157 (7.350-7.450); AaDO2 455.7 mmHg; COHb 0.7 % (0.5-1.5); O2Hb 78.3 % (94.0-97.0); SITE, ABG Left Radial; VENT MODE, BG NRB 15L
[2018-05-25 07:09] LABS: ALANINE AMINOTRANSFERASE 106 U/L (12-78); ALBUMIN 3.1 g/dL (3.4-5.0); ALKALINE PHOSPHATASE 115 U/L (46-116); ASPARTATE AMINOTRANSFERASE 86 U/L (15-37); BILIRUBIN,TOTAL 0.3 mg/dL (0.2-1.0); CALCIUM, SERUM 8.7 mg/dL (8.5-10.1); CARBON DIOXIDE 21 mmol/L (21-32); CHLORIDE 108 mmol/L (98-107); CREATININE 0.9 mg/dL (0.6-1.3); GLUCOSE 125 mg/dL (74-106); PHOSPHORUS 5.3 mg/dL (2.5-4.9); POTASSIUM 3.5 mmol/L (3.5-5.1); SODIUM SERUM 141 mmol/L (136-145); TOTAL PROTEIN, SERUM 6.2 g/dL (6.4-8.2); UREA NITROGEN, BLOOD 38 mg/dL (7-18)
[2018-05-25 07:53] LABS: ABG BASE EXCESS -11.7 mmol/L; ABG OXYGEN SATURATION 95.3 % (92.0-98.5); ABG PCO2 30.5 mmHg (35.0-45.0); ABG PH 7.272 (7.350-7.450); ABG PO2 97.4 mmHg (75.0-100.0); AaDO2 585.1 mmHg; COHb 0.6 % (0.5-1.5); MetHb 0.3 % (0.0-1.5); O2Hb 94.4 % (94.0-97.0); SITE, ABG Left Brachial; VENT MODE, BG BIPAP 20/8
[2018-05-25] MEDS: DICYCLOMINE HCL 10 MG CAPSULE PO SCH ×3 (08:36→16:50)
[2018-05-25] MEDS ORDERED: IV D5/ 0.9% NACL 1,000 ML IV ONE (09:30)
[2018-05-25] MEDS ORDERED: ALBUTEROL HALF STRENGTH 1.25 MG/3 ML VIAL.NEB NEB PRN (09:30)
[2018-05-25 09:54] LABS: ALBUMIN 3.2 g/dL (3.4-5.0); BILIRUBIN,DIRECT 0.1 mg/dL (0.0-0.2); BILIRUBIN,TOTAL 0.3 mg/dL (0.2-1.0); TOTAL PROTEIN, SERUM 6.2 g/dL (6.4-8.2)
[2018-05-25] MEDS: Z GUARD REMEDY 2 OZ OINT TP PRN (09:57)
[2018-05-25] MEDS: IV D5/ 0.9% NACL 1,000 ML IV PRN (09:57)
[2018-05-25] MEDS ORDERED: CEPHALEXIN MONOHYDRATE 250 MG CAPSULE PO SCH (12:00)
[2018-05-25 12:22] LABS: ABG BASE EXCESS -4.6 mmol/L; ABG OXYGEN SATURATION 96.2 % (92.0-98.5); ABG PCO2 30.6 mmHg (35.0-45.0); ABG PH 7.408 (7.350-7.450); ABG PO2 98.5 mmHg (75.0-100.0); AaDO2 295.6 mmHg; COHb 0.2 % (0.5-1.5); MetHb 0.3 % (0.0-1.5); O2Hb 95.7 % (94.0-97.0); SITE, ABG Right Radial; VENT MODE, BG BIPAP 20/8 PS 12
[2018-05-25] MEDS: ALBUTEROL HALF STRENGTH 1.25 MG/3 ML VIAL.NEB NEB SCH ×2 (13:52→20:00)
[2018-05-25] MEDS: IPRATROPIUM NEB FS 0.5 MG/2.5 ML AMPUL.NEB NEB SCH ×2 (13:52→20:00)
[2018-05-25] MEDS ORDERED: ACETAMINOPHEN 650 MG/SUPP.RECT RC PRN (14:00)
[2018-05-25 17:17] LABS: APPEARANCE,URINE CLEAR (CLEAR); BILIRUBIN,URINE NEGATIVE (NEGATIVE); BLOOD, URINE 2+ Ery/uL (NEGATIVE); COLOR,URINE YELLOW (YELLOW); KETONES,URINE NEGATIVE (NEGATIVE); LEUKOCYTE ESTERASE ,URINE NEGATIVE (NEGATIVE); NITRITE, URINE NEGATIVE (NEGATIVE); PH,URINE 5.5 (5.0-8.0); PROTEIN,URINE NEGATIVE (NEGATIVE); UGLUCOSE NEGATIVE (NEGATIVE); UROBILINOGEN,URINE 0.2 EU/dL (0.2)
[2018-05-25 17:23] LABS: BACTERIA,URINE Few /HPF (None Seen); SQUAMOUS EPITHELIAL CELL,UR Rare /HPF (None Seen); WBC,URINE 0-2 /HPF (0-3)
[2018-05-25] MEDS: PANTOPRAZOLE 40 MG VIAL IV SCH (21:11)
[2018-05-25] MEDS: ATORVASTATIN 40 MG TABLET PO SCH (21:11)
[2018-05-25 22:31] LABS: OCCULT BLOOD STOOL NEGATIVE (NEGATIVE)
[2018-05-25] MEDS ORDERED: DIGOXIN INJ 0.5 MG/2 ML AMPUL IV ONE (23:30)
[2018-05-26] VITALS (38 sets, daily range): BP systolic 97–139; BP diastolic 49–76
[2018-05-26] MEDS ORDERED: METOPROLOL TARTRATE INJ 5 MG/5 ML AMPUL IVP PRN ×2 (01:00→02:00)
[2018-05-26] MEDS: IPRATROPIUM NEB FS 0.5 MG/2.5 ML AMPUL.NEB NEB SCH ×4 (01:11→19:48)
[2018-05-26] MEDS: ALBUTEROL HALF STRENGTH 1.25 MG/3 ML VIAL.NEB NEB SCH ×4 (01:11→19:48)
[2018-05-26] MEDS: METOPROLOL TARTRATE INJ 5 MG/5 ML AMPUL IVP SCH ×3 (02:27→14:54)
[2018-05-26] MEDS: IV D5/ 0.9% NACL 1,000 ML IV PRN (02:58)
[2018-05-26 05:09] LABS: BASOPHILS % (AUTO) 0.2 % (0.0-2.0); EOSINOPHILS % (AUTO) 0.2 % (0.0-6.0); HEMATOCRIT 36 % (33-45); HEMOGLOBIN 11.6 g/dL (11.5-14.8); MEAN CORPUSCULAR HEMOGLOBIN 32 PG (26.0-33.0); MEAN CORPUSCULAR HGB CONC 33 g/dl (31.0-36.0); MEAN CORPUSCULAR VOLUME 98 fL (82-100); MONOCYTES # (AUTO) 0.8 /CMM (0.1-1.30); MONOCYTES % (AUTO) 8.3 % (2.0-12.0); NEUTROPHILS # (AUTO) 7.4 /CMM (1.8-8.9); NEUTROPHILS % (AUTO) 80.3 % (43.0-81.0); PLATELET COUNT (AUTO) 152 /CMM (150-450); RDW COEFFICIENT OF VARIATION 15.1 (11.5-15.0); RED BLOOD CELL COUNT(AUTO) 3.64 MIL/uL (4.0-5.2); WHITE BLOOD COUNT (AUTO) 9.2 K/uL (4.3-11.0)
[2018-05-26 05:19] LABS: CARBON DIOXIDE 25 mmol/L (21-32); CHLORIDE 112 mmol/L (98-107); CREATININE 0.8 mg/dL (0.6-1.3); GLUCOSE 149 mg/dL (74-106); MAGNESIUM 1.7 mg/dL (1.8-2.4); PHOSPHORUS 3.2 mg/dL (2.5-4.9); POTASSIUM 3.7 mmol/L (3.5-5.1); SODIUM SERUM 145 mmol/L (136-145); UREA NITROGEN, BLOOD 25 mg/dL (7-18)
[2018-05-26 05:20] LABS: CHOLESTEROL 71 mg/dL (<200); HDL CHOLESTEROL 52 mg/dL (40-60); LDL 35 mg/dL (0-99); TRIGLYCERIDES 49 mg/dL (30-150)
[2018-05-26] MEDS ORDERED: FUROSEMIDE 40 MG/4 ML VIAL IV ONE (08:00)
[2018-05-26] MEDS: PANTOPRAZOLE 40 MG VIAL IV SCH ×2 (08:18→20:02)
[2018-05-26] MEDS: DICYCLOMINE HCL 10 MG CAPSULE PO SCH ×3 (08:34→16:58)
[2018-05-26 09:01] LABS: ABG BASE EXCESS 0.7 mmol/L; ABG OXYGEN SATURATION 95.5 % (92.0-98.5); ABG PCO2 32.5 mmHg (35.0-45.0); ABG PO2 89.8 mmHg (75.0-100.0); AaDO2 71.5 mmHg; COHb 0.5 % (0.5-1.5); SITE, ABG Left Brachial; VENT MODE, BG 2L N/C
[2018-05-26 09:54] LABS: ALBUMIN 2.6 g/dL (3.4-5.0); BILIRUBIN,DIRECT 0.2 mg/dL (0.0-0.2); BILIRUBIN,TOTAL 0.9 mg/dL (0.2-1.0); TOTAL PROTEIN, SERUM 5.6 g/dL (6.4-8.2)
[2018-05-26] MEDS: Magnesium 1GM/D5W 100ML PREMIX 100 ML IV SCH ×2 (11:01→12:06)
[2018-05-26] MEDS: METOCLOPRAMIDE HCL 10 MG TABLET PO SCH ×2 (16:59→20:02)
[2018-05-26] MEDS: APIXABAN 2.5 MG TABLET PO SCH (16:59)
[2018-05-26] MEDS: SUCRALFATE 1 G TABLET PO SCH ×2 (16:59→21:08)
[2018-05-26] MEDS ORDERED: METOPROLOL TARTRATE 50 MG TABLET PO SCH (17:00)
[2018-05-26] MEDS ORDERED: Medication Not On Formulary EA ([Rivaroxaban] 15 MG) PO SCH (17:00)
[2018-05-26] MEDS ORDERED: CEFTRIAXONE 1 G VIAL IM SCH (19:30)
[2018-05-26] MEDS ORDERED: AZITHROMYCIN 250 MG TABLET PO ONE (19:30)
[2018-05-26] MEDS ORDERED: AMIODARONE 150 MG in IV D5W 100 ML IV ONE (20:00)
[2018-05-26] MEDS ORDERED: AMIODARONE 900 MG in IV D5W 482 ML IV PRN (20:00)
[2018-05-26] MEDS: CEFTRIAXONE 1 G in IV D5W 50 ML IV SCH (20:54)
[2018-05-26] MEDS ORDERED: FLECAINIDE ACETATE (100 MG) 100 MG TABLET PO SCH (21:00)
[2018-05-26] MEDS: ATORVASTATIN 40 MG TABLET PO SCH (21:08)
[2018-05-26] MEDS ORDERED: SIMVASTATIN 20 MG TABLET PO SCH (22:00)
[2018-05-27] VITALS (39 sets, daily range): BP systolic 84–122; BP diastolic 45–90
[2018-05-27] MEDS: ALBUTEROL HALF STRENGTH 1.25 MG/3 ML VIAL.NEB NEB SCH ×4 (01:04→19:52)
[2018-05-27] MEDS: IPRATROPIUM NEB FS 0.5 MG/2.5 ML AMPUL.NEB NEB SCH ×4 (01:04→19:52)
[2018-05-27 04:41] LABS: BASOPHILS % (AUTO) 0.5 % (0.0-2.0); EOSINOPHILS % (AUTO) 2.9 % (0.0-6.0); HEMATOCRIT 38 % (33-45); HEMOGLOBIN 12.1 g/dL (11.5-14.8); LYMPHOCYTES # (AUTO) 1.4 /CMM (0.8-4.8); LYMPHOCYTES % (AUTO) 14.7 % (20.0-44.0); MEAN CORPUSCULAR HEMOGLOBIN 31 PG (26.0-33.0); MEAN CORPUSCULAR HGB CONC 32 g/dl (31.0-36.0); MEAN CORPUSCULAR VOLUME 99 fL (82-100); MONOCYTES # (AUTO) 0.9 /CMM (0.1-1.30); MONOCYTES % (AUTO) 10.2 % (2.0-12.0); NEUTROPHILS # (AUTO) 6.6 /CMM (1.8-8.9); NEUTROPHILS % (AUTO) 71.7 % (43.0-81.0); PLATELET COUNT (AUTO) 171 /CMM (150-450); RDW COEFFICIENT OF VARIATION 14.8 (11.5-15.0); RED BLOOD CELL COUNT(AUTO) 3.84 MIL/uL (4.0-5.2); WHITE BLOOD COUNT (AUTO) 9.3 K/uL (4.3-11.0)
[2018-05-27 04:55] LABS: CALCIUM, SERUM 8.7 mg/dL (8.5-10.1); CARBON DIOXIDE 28 mmol/L (21-32); CHLORIDE 107 mmol/L (98-107); CREATININE 0.7 mg/dL (0.6-1.3); GLUCOSE 113 mg/dL (74-106); MAGNESIUM 2.1 mg/dL (1.8-2.4); PHOSPHORUS 2.3 mg/dL (2.5-4.9); POTASSIUM 3.2 mmol/L (3.5-5.1); SODIUM SERUM 142 mmol/L (136-145); UREA NITROGEN, BLOOD 21 mg/dL (7-18)
[2018-05-27] MEDS ORDERED: PANTOPRAZOLE 40 MG TABLET.DR PO SCH (07:30)
[2018-05-27] MEDS: METOCLOPRAMIDE HCL 10 MG TABLET PO SCH ×4 (08:09→22:04)
[2018-05-27] MEDS: FERROUS SULFATE (325 MG) 325 MG/TAB TABLET PO SCH (08:10)
[2018-05-27] MEDS: AZITHROMYCIN 250 MG TABLET PO SCH (08:10)
[2018-05-27] MEDS: METOPROLOL TARTRATE 50 MG TABLET PO SCH ×2 (08:11→16:57)
[2018-05-27] MEDS: SUCRALFATE 1 G TABLET PO SCH ×4 (08:11→22:03)
[2018-05-27] MEDS: ASPIRIN EC 81 MG TABLET.DR PO SCH (08:12)
[2018-05-27] MEDS: APIXABAN 2.5 MG TABLET PO SCH ×2 (08:12→16:59)
[2018-05-27] MEDS: DICYCLOMINE HCL 10 MG CAPSULE PO SCH ×3 (08:12→16:58)
[2018-05-27] MEDS: PANTOPRAZOLE 40 MG VIAL IV SCH ×2 (08:29→22:03)
[2018-05-27] MEDS ORDERED: GLIMEPIRIDE 1 MG TABLET PO SCH (09:00)
[2018-05-27] MEDS ORDERED: Medication Not On Formulary EA (Omeprazole 1 CAP) PO SCH (09:00)
[2018-05-27] MEDS ORDERED: SPIRONOLACTONE 25 MG TABLET PO SCH (09:00)
[2018-05-27] MEDS: FENOFIBRATE NANOCRYS (145 MG) 145 MG TABLET PO SCH (09:04)
[2018-05-27] MEDS: Z GUARD REMEDY 2 OZ OINT TP PRN (11:24)
[2018-05-27] MEDS: POTASSIUM CHLORIDE 20 MEQ POWDER PACKET PO SCH ×2 (12:23→14:29)
[2018-05-27] MEDS ORDERED: NEUTRA PHOS 1 POWD.PACKET PO ONE (17:00)
[2018-05-27] MEDS ORDERED: DIGOXIN 0.25 MG TABLET PO SCH (17:00)
[2018-05-27] MEDS ORDERED: MAGNESIUM HYDROXIDE 30 ML UDC PO PRN (17:00)
[2018-05-27] MEDS: CEFTRIAXONE 1 G in IV D5W 50 ML IV SCH (22:03)
[2018-05-27] MEDS: ATORVASTATIN 40 MG TABLET PO SCH (22:06)
[2018-05-28] VITALS (31 sets, daily range): BP systolic 95–126; BP diastolic 19–67
[2018-05-28] MEDS: ALBUTEROL HALF STRENGTH 1.25 MG/3 ML VIAL.NEB NEB SCH ×4 (01:45→19:45)
[2018-05-28] MEDS: IPRATROPIUM NEB FS 0.5 MG/2.5 ML AMPUL.NEB NEB SCH ×4 (01:45→19:45)
[2018-05-28 04:31] LABS: BASOPHILS # (AUTO) 0.1 /CMM (0.0-0.2); BASOPHILS % (AUTO) 0.8 % (0.0-2.0); EOSINOPHILS % (AUTO) 3.5 % (0.0-6.0); HEMATOCRIT 34 % (33-45); HEMOGLOBIN 11.2 g/dL (11.5-14.8); LYMPHOCYTES # (AUTO) 1.6 /CMM (0.8-4.8); LYMPHOCYTES % (AUTO) 18.1 % (20.0-44.0); MEAN CORPUSCULAR HEMOGLOBIN 32 PG (26.0-33.0); MEAN CORPUSCULAR HGB CONC 33 g/dl (31.0-36.0); MEAN CORPUSCULAR VOLUME 98 fL (82-100); MONOCYTES # (AUTO) 0.8 /CMM (0.1-1.30); MONOCYTES % (AUTO) 9.3 % (2.0-12.0); NEUTROPHILS % (AUTO) 68.3 % (43.0-81.0); PLATELET COUNT (AUTO) 164 /CMM (150-450); RDW COEFFICIENT OF VARIATION 14.9 (11.5-15.0); RED BLOOD CELL COUNT(AUTO) 3.48 MIL/uL (4.0-5.2); WHITE BLOOD COUNT (AUTO) 8.7 K/uL (4.3-11.0)
[2018-05-28 04:42] LABS: CALCIUM, SERUM 8.3 mg/dL (8.5-10.1); CARBON DIOXIDE 27 mmol/L (21-32); CHLORIDE 107 mmol/L (98-107); CREATININE 0.9 mg/dL (0.6-1.3); GLUCOSE 124 mg/dL (74-106); MAGNESIUM 2.2 mg/dL (1.8-2.4); POTASSIUM 4.3 mmol/L (3.5-5.1); SODIUM SERUM 142 mmol/L (136-145); UREA NITROGEN, BLOOD 24 mg/dL (7-18)
[2018-05-28] MEDS ORDERED: ALENDRONATE 35 MG TABLET PO SCH (07:30)
[2018-05-28] MEDS: SUCRALFATE 1 G TABLET PO SCH ×4 (08:54→22:06)
[2018-05-28] MEDS: ASPIRIN EC 81 MG TABLET.DR PO SCH (08:54)
[2018-05-28] MEDS: FERROUS SULFATE (325 MG) 325 MG/TAB TABLET PO SCH (08:54)
[2018-05-28] MEDS: PANTOPRAZOLE 40 MG VIAL IV SCH ×2 (08:54→22:06)
[2018-05-28] MEDS: METOCLOPRAMIDE HCL 10 MG TABLET PO SCH ×4 (08:54→22:08)
[2018-05-28] MEDS: AZITHROMYCIN 250 MG TABLET PO SCH (08:54)
[2018-05-28] MEDS: APIXABAN 2.5 MG TABLET PO SCH ×2 (08:55→17:01)
[2018-05-28] MEDS: DICYCLOMINE HCL 10 MG CAPSULE PO SCH ×3 (08:55→17:01)
[2018-05-28] MEDS: FENOFIBRATE NANOCRYS (145 MG) 145 MG TABLET PO SCH (08:55)
[2018-05-28] MEDS: METOPROLOL TARTRATE 50 MG TABLET PO SCH ×2 (09:00→17:03)
[2018-05-28] MEDS: GLUCERNA SHAKE 237 ML CAN PO SCH ×2 (13:12→17:01)
[2018-05-28] MEDS: ATORVASTATIN 40 MG TABLET PO SCH (22:06)
[2018-05-29 00:30] VITALS: BP 104/67
[2018-05-29] MEDS: ALBUTEROL HALF STRENGTH 1.25 MG/3 ML VIAL.NEB NEB SCH ×4 (01:43→20:02)
[2018-05-29] MEDS: IPRATROPIUM NEB FS 0.5 MG/2.5 ML AMPUL.NEB NEB SCH ×4 (01:43→20:02)
[2018-05-29 04:00] VITALS: BP 101/61
[2018-05-29 06:45] LABS: BASOPHILS % (AUTO) 0.6 % (0.0-2.0); EOSINOPHILS % (AUTO) 5.2 % (0.0-6.0); HEMATOCRIT 35 % (33-45); HEMOGLOBIN 11.3 g/dL (11.5-14.8); LYMPHOCYTES # (AUTO) 1.3 /CMM (0.8-4.8); LYMPHOCYTES % (AUTO) 17.3 % (20.0-44.0); MEAN CORPUSCULAR HEMOGLOBIN 32 PG (26.0-33.0); MEAN CORPUSCULAR HGB CONC 32 g/dl (31.0-36.0); MEAN CORPUSCULAR VOLUME 99 fL (82-100); MONOCYTES # (AUTO) 0.8 /CMM (0.1-1.30); MONOCYTES % (AUTO) 10.6 % (2.0-12.0); NEUTROPHILS # (AUTO) 4.8 /CMM (1.8-8.9); NEUTROPHILS % (AUTO) 66.3 % (43.0-81.0); PLATELET COUNT (AUTO) 175 /CMM (150-450); RED BLOOD CELL COUNT(AUTO) 3.58 MIL/uL (4.0-5.2); WHITE BLOOD COUNT (AUTO) 7.2 K/uL (4.3-11.0)
[2018-05-29 07:17] LABS: CALCIUM, SERUM 8.8 mg/dL (8.5-10.1); CARBON DIOXIDE 26 mmol/L (21-32); CHLORIDE 108 mmol/L (98-107); CREATININE 0.8 mg/dL (0.6-1.3); GLUCOSE 115 mg/dL (74-106); MAGNESIUM 2.1 mg/dL (1.8-2.4); SODIUM SERUM 142 mmol/L (136-145); UREA NITROGEN, BLOOD 21 mg/dL (7-18)
[2018-05-29 08:00] VITALS: BP 102/55
[2018-05-29] MEDS: PANTOPRAZOLE 40 MG VIAL IV SCH ×2 (08:26→21:13)
[2018-05-29] MEDS: ASPIRIN EC 81 MG TABLET.DR PO SCH (08:26)
[2018-05-29] MEDS: APIXABAN 2.5 MG TABLET PO SCH ×2 (08:26→18:24)
[2018-05-29] MEDS: METOCLOPRAMIDE HCL 10 MG TABLET PO SCH ×4 (08:26→21:15)
[2018-05-29] MEDS: FERROUS SULFATE (325 MG) 325 MG/TAB TABLET PO SCH (08:26)
[2018-05-29] MEDS: FENOFIBRATE NANOCRYS (145 MG) 145 MG TABLET PO SCH (08:26)
[2018-05-29] MEDS: SUCRALFATE 1 G TABLET PO SCH ×4 (08:26→21:13)
[2018-05-29] MEDS: DICYCLOMINE HCL 10 MG CAPSULE PO SCH ×3 (08:26→17:49)
[2018-05-29] MEDS: GLUCERNA SHAKE 237 ML CAN PO SCH ×3 (08:26→17:49)
[2018-05-29] MEDS: METOPROLOL TARTRATE 50 MG TABLET PO SCH ×2 (08:27→17:49)
[2018-05-29 12:00] VITALS: BP 92/57
[2018-05-29] MEDS: AMIODARONE HCL 200 MG TABLET PO SCH ×2 (13:32→21:15)
[2018-05-29 16:00] VITALS: BP 105/71
[2018-05-29 20:00] VITALS: BP 111/64
[2018-05-29] MEDS: ATORVASTATIN 40 MG TABLET PO SCH (21:13)
[2018-05-30] MEDS: ALBUTEROL HALF STRENGTH 1.25 MG/3 ML VIAL.NEB NEB SCH ×3 (02:20→13:35)
[2018-05-30] MEDS: IPRATROPIUM NEB FS 0.5 MG/2.5 ML AMPUL.NEB NEB SCH ×3 (02:20→13:35)
[2018-05-30 06:43] LABS: BASOPHILS % (AUTO) 0.5 % (0.0-2.0); EOSINOPHILS % (AUTO) 6.3 % (0.0-6.0); HEMATOCRIT 39 % (33-45); HEMOGLOBIN 12.6 g/dL (11.5-14.8); LYMPHOCYTES % (AUTO) 14.3 % (20.0-44.0); MEAN CORPUSCULAR HEMOGLOBIN 32 PG (26.0-33.0); MEAN CORPUSCULAR HGB CONC 32 g/dl (31.0-36.0); MEAN CORPUSCULAR VOLUME 98 fL (82-100); MONOCYTES # (AUTO) 0.7 /CMM (0.1-1.30); MONOCYTES % (AUTO) 9.2 % (2.0-12.0); NEUTROPHILS % (AUTO) 69.7 % (43.0-81.0); PLATELET COUNT (AUTO) 222 /CMM (150-450); RDW COEFFICIENT OF VARIATION 14.9 (11.5-15.0); RED BLOOD CELL COUNT(AUTO) 3.99 MIL/uL (4.0-5.2); WHITE BLOOD COUNT (AUTO) 7.2 K/uL (4.3-11.0)
[2018-05-30 06:58] LABS: CALCIUM, SERUM 8.8 mg/dL (8.5-10.1); CARBON DIOXIDE 24 mmol/L (21-32); CHLORIDE 110 mmol/L (98-107); CREATININE 0.8 mg/dL (0.6-1.3); GLUCOSE 114 mg/dL (74-106); POTASSIUM 3.8 mmol/L (3.5-5.1); SODIUM SERUM 143 mmol/L (136-145); UREA NITROGEN, BLOOD 17 mg/dL (7-18)
[2018-05-30 08:00] VITALS: BP 114/68
[2018-05-30] MEDS: FENOFIBRATE NANOCRYS (145 MG) 145 MG TABLET PO SCH (08:34)
[2018-05-30] MEDS: ASPIRIN EC 81 MG TABLET.DR PO SCH (08:34)
[2018-05-30] MEDS: GLUCERNA SHAKE 237 ML CAN PO SCH ×2 (08:34→12:14)
[2018-05-30 08:35] VITALS: BP 114/68
[2018-05-30] MEDS: FERROUS SULFATE (325 MG) 325 MG/TAB TABLET PO SCH (08:35)
[2018-05-30] MEDS: METOPROLOL TARTRATE 50 MG TABLET PO SCH (08:35)
[2018-05-30] MEDS: DICYCLOMINE HCL 10 MG CAPSULE PO SCH ×2 (08:35→12:14)
[2018-05-30] MEDS: METOCLOPRAMIDE HCL 10 MG TABLET PO SCH ×2 (08:35→12:14)
[2018-05-30] MEDS: AMIODARONE HCL 200 MG TABLET PO SCH (08:35)
[2018-05-30] MEDS: SUCRALFATE 1 G TABLET PO SCH ×2 (08:35→12:14)
[2018-05-30] MEDS: PANTOPRAZOLE 40 MG VIAL IV SCH (08:37)
[2018-05-30] MEDS: APIXABAN 2.5 MG TABLET PO SCH (09:07)
[2018-05-30] MEDS ORDERED: METO50TA16 PO (13:07)
[2018-05-30] MEDS ORDERED: AMIO200T7 PO (13:07)
[2018-05-30] MEDS ORDERED: AMIO200T4 PO (13:07)
[2018-05-30] MEDS ORDERED: ASPI-1152 PO (13:07)
[2018-06-05] MEDS ORDERED: AMIODARONE HCL 200 MG TABLET PO SCH (21:00)
== END 2018-05-30 15:13 | disposition home or self-care (01) | DRG 291 ==
LOC: ER 22:54 → TELE 05-25 01:38 → ICU 05-25 06:53 → TELE 05-28 20:46 → MED 05-29 20:26
PROVIDERS: ADMIT Nurse Practitioner Acute Care; ATTEND Nurse Practitioner Acute Care
PROC: 5A09457 Assistance with Respiratory Ventilation, 24-96 Consecutive Hours, Continuous Positive Airway Pressure (ICD-10-PCS; principal; 2018-05-25)
DX: I13.0 Hypertensive heart and chronic kidney disease with heart failure and stage 1 through stage 4 chronic kidney disease, or unspecified chronic kidney disease (principal); J96.02 Acute respiratory failure with hypercapnia; I50.33 Acute on chronic diastolic (congestive) heart failure; J96.01 Acute respiratory failure with hypoxia; D68.59 Other primary thrombophilia; E87.2 Acidosis; R07.9 Chest pain, unspecified; E03.9 Hypothyroidism, unspecified; K21.9 Gastro-esophageal reflux disease without esophagitis; E86.0 Dehydration; I48.0 Paroxysmal atrial fibrillation; I08.1 Rheumatic disorders of both mitral and tricuspid valves; R74.0 Nonspecific elevation of levels of transaminase and lactic acid dehydrogenase [LDH]; E11.65 Type 2 diabetes mellitus with hyperglycemia; E78.5 Hyperlipidemia, unspecified; I70.0 Atherosclerosis of aorta; Z86.73 Personal history of transient ischemic attack (TIA), and cerebral infarction without residual deficits; I25.2 Old myocardial infarction; I25.10 Atherosclerotic heart disease of native coronary artery without angina pectoris; E11.22 Type 2 diabetes mellitus with diabetic chronic kidney disease; Z87.11 Personal history of peptic ulcer disease; N18.9 Chronic kidney disease, unspecified
CPT/HCPCS: 36415; 36600; 70450-TC; 71045-TC; 76700-TC; 80048-TC; 80053-TC; 80061-TC; 80076-TC; 80162-TC; 81000-TC; 82150-TC; 82272-TC; 82803-TC; 82962-TC; 83605-TC; 83690-TC; 83735-TC; 84100-TC; 84484-TC; 85025-TC; 85730-TC; 86850-TC; 87040-TC; 87070-TC; 87081-TC; 92611-TC; 93307-TC; 94760-TC; 94799-TC; 99082-TC; A4606; C9113; J0282; J0696; J1160; J1940; J3475; J3490; J7030; J7042; J7050; J7060; J8597; Z7610

== ENCOUNTER 2018-06-15 00:28 | Inpatient (IN) | payer MEDICARE, OTHER ==
[2018-06-15] VITALS (27 sets, daily range): BP systolic 80–204; BP diastolic 32–125
[~2018-06-15] VITALS: Ht 149.9 cm; Wt 46.7 kg
[~2018-06-15 00:28] MED LIST changes: +AMIO200T4 PO; +AMIO200T7 PO; +APIX2.5T PO; +ASPI-1152 PO; +ATOR40TA PO; -CIPR-262 PO; +DICY10CA13 PO; +FERR325T23 PO; +METO-295 PO; +METO50TA16 PO; -METR500T PO
--- NOTE | 2018-06-15 00:56 | NUR ---
RAC 20G IV ACCESS OBTAINED BUT UNABLE TO DRAW LABS OFF IV. IV FLUSHES WELL WITH NO SIGNS OF INFILTRATION.
[2018-06-15] MEDS ORDERED: IV NS 0.9% 500 ML BAG IV ONE (01:00)
--- NOTE | 2018-06-15 01:15 | NUR ---
PT BIB SON C/O LOW BP AT HOME AND FEELING WEEK. RECENTLY DC'D FROM [facility] WITH UPPER EXTREMITY DVT. RESP EVEN UNLABORED. SKIN COOL DRY, TENTING. PT WAS ABLE TO STAND WITH 2 ASSIST AND TRANSFER FROM WHEELCHAIR TO ER BED. NOTED WITH BRUISING TO KORINA ARMS. PT IS ALERT AND VERBALLY RESPONSIVE, ANSWERING APPROPRIATELY. IN ER BED 10 ON MONITOR.
[2018-06-15] MEDS ORDERED: CT SWABBABLE VALVE TRANS SET 1 EA INFUS.SET MC ONE (01:29)
[2018-06-15] MEDS ORDERED: IV NS 0.9% 250 ML IV ONE (01:29)
[2018-06-15] MEDS ORDERED: IOHEXOL-350 100 ML VIAL IV ONE (01:29)
[2018-06-15 01:33] LABS: BASOPHILS # (AUTO) 0.1 /CMM (0.0-0.2); BASOPHILS % (AUTO) 0.8 % (0.0-2.0); EOSINOPHILS % (AUTO) 1.1 % (0.0-6.0); HEMATOCRIT 33 % (33-45); HEMOGLOBIN 10.9 g/dL (11.5-14.8); LYMPHOCYTES # (AUTO) 1.8 /CMM (0.8-4.8); LYMPHOCYTES % (AUTO) 14.8 % (20.0-44.0); MEAN CORPUSCULAR HEMOGLOBIN 33 PG (26.0-33.0); MEAN CORPUSCULAR HGB CONC 33 g/dl (31.0-36.0); MEAN CORPUSCULAR VOLUME 99 fL (82-100); MONOCYTES # (AUTO) 1.2 /CMM (0.1-1.30); NEUTROPHILS # (AUTO) 8.6 /CMM (1.8-8.9); NEUTROPHILS % (AUTO) 73.3 % (43.0-81.0); PLATELET COUNT (AUTO) 213 /CMM (150-450); RDW COEFFICIENT OF VARIATION 16.8 (11.5-15.0); RED BLOOD CELL COUNT(AUTO) 3.32 MIL/uL (4.0-5.2); WHITE BLOOD COUNT (AUTO) 11.8 K/uL (4.3-11.0)
--- NOTE | 2018-06-15 01:35 | NUR ---
PT'S SON REFUSES IV CONTRAST STATING "SHE HAS HAD TOO MUCH AT [facility]" AND "SHE HAD ACUTE KIDNEY FAILURE BEFORE". I THOROUGHLY EXPLAINED THE RISKS/BENEFITS OF CT PULMONARY ANGIOGRAM AND OF REFUSAL. PT'S SON VERBALIZES UNDERSTANDING BUT STILL REFUSES. NOTIFIED DR JOHNSON OF THIS.
[2018-06-15 02:03] LABS: CALCIUM, SERUM 9.8 mg/dL (8.5-10.1); CARBON DIOXIDE 25 mmol/L (21-32); CHLORIDE 100 mmol/L (98-107); CREATININE 1.7 mg/dL (0.6-1.3); GLUCOSE 157 mg/dL (74-106); POTASSIUM 5.3 mmol/L (3.5-5.1); SODIUM SERUM 135 mmol/L (136-145); UREA NITROGEN, BLOOD 43 mg/dL (7-18)
[2018-06-15 02:06] LABS: BAND % (MANUAL) 2 % (0.0-5.0); EOSINOPHILS % (MANUAL) 2 % (0-4); INR 1.84 (0.87-1.13); LYMPHOCYTES % (MANUAL) 9 % (16-48); MONOCYTES % (MANUAL) 7 % (0-11.0); NEUTROPHILS % (MANUAL) 80 (42-76)
[2018-06-15 02:16] LABS: ALANINE AMINOTRANSFERASE 240 U/L (12-78); ALBUMIN 3.1 g/dL (3.4-5.0); ALKALINE PHOSPHATASE 96 U/L (46-116); ASPARTATE AMINOTRANSFERASE 35 U/L (15-37); BILIRUBIN,DIRECT 0.4 mg/dL (0.0-0.2); BILIRUBIN,TOTAL 1.1 mg/dL (0.2-1.0); LIPASE 1416 U/L (73-393); TOTAL PROTEIN, SERUM 6.3 g/dL (6.4-8.2)
[2018-06-15] MEDS ORDERED: PIPERACILLIN /TAZOBACTAM 3.375 G in IV D5W 50 ML IV ONE (02:30)
--- NOTE | 2018-06-15 02:30 | NUR ---
CALLED NURSING RADIOLOGIC TECHNOLOGY PROGRAM DIRECTOR FOR TELE BED
--- NOTE | 2018-06-15 02:30 | NUR ---
US TECH AT BEDSIDE
[2018-06-15 02:47] LABS: TROPONIN I < 0.017 ng/mL (0.00-0.056)
[2018-06-15] MEDS ORDERED: PIPERACILLIN /TAZOBACTAM 3.375 G VIAL IV ONE (02:56)
--- NOTE | 2018-06-15 03:00 | NUR ---
PT C/O PAIN IN RAC IV. NO SIGNS OF INFECTION OR INFILTRATION NOTED. IV REMOVED PER PT REQUEST.
--- NOTE | 2018-06-15 03:55 | NUR ---
REPORT GIVEN TO CATHIE ALCAZAR FOR ADMISSION
[2018-06-15] MEDS ORDERED: MORPHINE SULFATE INJ 2 MG/ML DISP.SYRIN IV PRN (04:00)
[2018-06-15] MEDS ORDERED: IV D5/ 0.9% NACL 1,000 ML IV SCH (04:00)
[2018-06-15] MEDS ORDERED: ONDANSETRON HCL/PF 4 MG/2 ML VIAL IVP PRN (04:00)
--- NOTE | 2018-06-15 04:05 | NUR ---
PT STATING "I CAN'T BREATHE" HOWEVER PT APPEARS IN NO RESP DISTRESS. PT WAS HUNCHED OVER IN BED; REPOSITIONED PT SITTING UP STRAIGHT AND APPLIED O2 AT 2L VIA NC FOR COMFORT. VSS.
--- NOTE | 2018-06-15 04:09 | NUR ---
PT C/O SOB. RHONCHI AUDIBLE AT THIS TIME. DR JOHNSON NOTIFIED. RT PAGED FOR BREATHING TX.
[2018-06-15] MEDS ORDERED: ALBUTEROL FS 2.5 MG/3 ML VIAL.NEB ONE (04:11)
[2018-06-15 04:12] LABS: APPEARANCE,URINE CLOUDY (CLEAR); BILIRUBIN,URINE 2+ (NEGATIVE); BLOOD, URINE 3+ Ery/uL (NEGATIVE); COLOR,URINE DARK YELLO (YELLOW); KETONES,URINE TRACE (NEGATIVE); LEUKOCYTE ESTERASE ,URINE 2+ (NEGATIVE); NITRITE, URINE NEGATIVE (NEGATIVE); PROTEIN,URINE 1+ mg/dl (NEGATIVE); UGLUCOSE NEGATIVE (NEGATIVE)
[2018-06-15 04:20] LABS: RBC,URINE 81-100 /HPF (0-2)
[2018-06-15 04:21] LABS: BACTERIA,URINE Moderate /HPF (None Seen); SQUAMOUS EPITHELIAL CELL,UR Moderate /HPF (None Seen)
[2018-06-15] MEDS ORDERED: ETOMIDATE 2 MG/ML VIAL ONE (04:29)
[2018-06-15] MEDS ORDERED: ROCURONIUM BROMIDE 50 MG/5 ML ONE ×2 (04:29)
[2018-06-15] MEDS ORDERED: ALBUTEROL FS 2.5 MG/0.5 ML VIAL.NEB NEB SCH (04:30)
[2018-06-15] MEDS ORDERED: ALBUTEROL FS 2.5 MG/0.5 ML VIAL.NEB NEB PRN ×2 (04:30→05:00)
--- NOTE | 2018-06-15 04:30 | NUR ---
PT NOW VERY LABORED BREATHING, DIAPHORETIC, AUDIBLE CONGESTION, NO IMPROVEMENT FROM BREATHING TX. DR JOHNSON AND RT VITALY AT BEDSIDE SPEAKING WITH PT AND SON-IN-LAW.
--- NOTE | 2018-06-15 04:46 | NUR ---
PT INTUBATED BY DR JOHNSON, 04/01 ETT, 23 @ LIP
--- NOTE | 2018-06-15 04:50 | NUR ---
PT INTUBATED BY DO SHANGARI 7.5 ET TUBE 23CM AT THE LIP, GOOD COLOR CHANGE, MIST IN TUBE, AND BS AUSCULTATED BILATERAL. VENT SETTINGS AC 16, 450, 60%, +5. VENT ALARMS SET CHECKED FOUND FUNCTIONAL AUDIBLE, AND WITHIN RANGE. VENT PLUGGED INTO RED OUTLET. BVM AT BEDSIDE.
--- NOTE | 2018-06-15 04:58 | NUR ---
OGT 16FR INSERTED TO 45CM, PLACEMENT VERIFIED BY AUSCULTATION AND XRAY. BARR CATH 16FR INSERTED. SCANT AMOUNT OF URINE DRAINED TO GRAVITY. XRAY AT BEDSIDE.
--- NOTE | 2018-06-15 04:59 | NUR ---
PT PLACED ON 2 POINT RESTRAINTS PER PROTOCOL
[2018-06-15] MEDS ORDERED: IV NS 0.9% 1,000 ML IV PRN (05:00)
[2018-06-15] MEDS ORDERED: ROCURONIUM BROMIDE 50 MG/5 ML IV ONE (05:30)
[2018-06-15] MEDS ORDERED: DEXTROSE 50%-WATER 50 ML DISP.SYRIN IV PRN (05:30)
[2018-06-15] MEDS ORDERED: ETOMIDATE 2 MG/ML VIAL IV ONE (05:30)
--- NOTE | 2018-06-15 05:35 | NUR ---
PT'S SON-IN-LAW NOW REPORTS THAT PT HAS A "DARK, FATAL REACTION" TO AMIODARONE. EDITED ALLERGIES TO REFLECT THIS.
[2018-06-15 05:36] LABS: ABG BASE EXCESS -7.2 mmol/L; ABG OXYGEN SATURATION 95.8 % (92.0-98.5); ABG PCO2 30.7 mmHg (35.0-45.0); ABG PH 7.362 (7.350-7.450); ABG PO2 98.1 mmHg (75.0-100.0); AaDO2 295.9 mmHg; COHb 1.2 % (0.5-1.5); MetHb 0.1 % (0.0-1.5); O2Hb 94.6 % (94.0-97.0); PEEP,BG 5 cm H2O; SITE, ABG Left Radial; VT, ABG 450 mL
--- NOTE | 2018-06-15 05:37 | NUR ---
DR JOHNSON INSERTED 18G L EJ IV WITH GOOD BLOOD RETURN AND NO SIGNS OF INFILTRATION.
[2018-06-15 05:50] LABS: CALCIUM, SERUM 9.6 mg/dL (8.5-10.1); CARBON DIOXIDE 20 mmol/L (21-32); CHLORIDE 100 mmol/L (98-107); GLUCOSE 219 mg/dL (74-106); MAGNESIUM 2.5 mg/dL (1.8-2.4); PHOSPHORUS 7.6 mg/dL (2.5-4.9); SODIUM SERUM 136 mmol/L (136-145); UREA NITROGEN, BLOOD 45 mg/dL (7-18)
[2018-06-15 05:52] LABS: CHOLESTEROL 100 mg/dL (<200); HDL CHOLESTEROL 48 mg/dL (40-60); LDL 52 mg/dL (0-99); TRIGLYCERIDES 120 mg/dL (30-150)
--- NOTE | 2018-06-15 05:52 | NUR ---
PER MO, NO ICU BED UNTIL AFTER CHANGE OF SHIFT. TOLERATING ON VENT SETTINGS. SON-IN-LAW AT BEDSIDE, UPDATED ON PLAN OF CARE. SPOKE WITH PHARMACIST REGARDING RELEASE OF MEDS AND NEW ALLERGY TO AMIODARONE.
--- NOTE | 2018-06-15 06:04 | NUR ---
NOTIFIED JUICE TESTER VIKY OF LACTATE AND ELEVATED BP. RECEIVED VERBAL ORDER FOR PROPOFOL PRN FOR SEDATION. NO ORDERS FOR ANTIHYPERTENSIVES.
--- NOTE | 2018-06-15 06:27 | NUR ---
CALLED RT AND NOTIFIED THAT WITHDRAWAL OF ETT BY 2CM IS RECOMMENDED. ADVANCED OGT BY 6CM TO 51 AT THE LIP PER RADIOLOGIST RECOMMENDATION.
[2018-06-15] MEDS ORDERED: PROPOFOL 100 ML IV PRN ×2 (06:30→08:30)
--- NOTE | 2018-06-15 06:35 | NUR ---
REMAINS ON VENT AT ORDERED SETTINGS, UNAROUSABLE, HYPERTENSIVE. ON MONITOR.
--- NOTE | 2018-06-15 07:04 | NUR ---
REPORT GIVEN TO AUGUST ALCAZAR FOR LOLLY
--- NOTE | 2018-06-15 07:05 | NUR ---
received report for florencio. patient remains stable will continue to monitor.
[2018-06-15 07:15] LABS: HEMATOCRIT 35 % (33-45); HEMOGLOBIN 11.6 g/dL (11.5-14.8); MEAN CORPUSCULAR HEMOGLOBIN 34 PG (26.0-33.0); MEAN CORPUSCULAR HGB CONC 33 g/dl (31.0-36.0); MEAN CORPUSCULAR VOLUME 100 fL (82-100); RED BLOOD CELL COUNT(AUTO) 3.47 MIL/uL (4.0-5.2); WHITE BLOOD COUNT (AUTO) 12.4 K/uL (4.3-11.0)
[2018-06-15 07:16] LABS: BASOPHILS % (AUTO) 0.7 % (0.0-2.0); EOSINOPHILS % (AUTO) 0.8 % (0.0-6.0); LYMPHOCYTES % (AUTO) 18.8 % (20.0-44.0); NEUTROPHILS % (AUTO) 74.7 % (43.0-81.0); PLATELET COUNT (AUTO) 227 /CMM (150-450); RDW COEFFICIENT OF VARIATION 17 (11.5-15.0)
--- NOTE | 2018-06-15 07:23 | NUR ---
RT NOTE ETT WITHDRAWN 2CM PER MD ORDER. ETT NOW AT 21 CM AT LIP. CUFF INFLATED. ETT SECURE. NO DISTRESS NOTED. RN NOTIFIED. Addendum: 06/15/18 at 0725 by ROSSI CASAREZ RT Amended: Links added.
--- NOTE | 2018-06-15 07:25 | NUR ---
rt at bedside, et tube withdrawn 2cm per md orders.
[2018-06-15] MEDS ORDERED: PANTOPRAZOLE 40 MG TABLET.DR PO SCH (07:30)
--- NOTE | 2018-06-15 07:35 | NUR ---
REPORT GIVEN TO GOOD ALCAZAR FOR LOLLY UPON ADMISSION.
--- NOTE | 2018-06-15 07:45 | NUR ---
RN INITIAL NOTES: Rec'd report from ARTUR Grace RN. Pt admitted to room 253 transferred via gurney accompanied by RNs & RT. Pt is comatose at this time, not on any sedatives. Pt on MV via ETT 7.5, sating at 100% (per report, ET already adjusted from ER). Placed on telemonitor, SB 55 bpm. Has OGT at 50cm, noted gurgling sound upon auscultation. Has 2 IV line access: L IJ G18 & L hand G22, both SL, flushing well, no s/sx of infection/infiltration noted. Has FC draining to BSB, noted 10cc tea colored urine output. Placed B soft wrist restraints for safety. Pt seen & examined by Dr. Landa. Per , start IVF NS x 75 cc/hr. Notify him re: pt mental status, poss need for CT of head if remains unresponsive. Addendum: 06/15/18 at 1908 by GOOD GALVAN RN Addendum: Noted cholecystostomy catheter on RUQ abdomen, noted bilious output.
--- NOTE | 2018-06-15 07:51 | NUR ---
PATIENT TRANSPORTED TO ICU 253 VIA ACLS PROTOCOL. RNGOOD TO PROVIDE LOLLY.
--- NOTE | 2018-06-15 08:00 | NUR ---
Pt seen & examined by Dr. Stephens. clarified w/ family if pt is allergic to Amiodarone. Per family, pt's BP & HR drops when she takes Amio med. Per , pt is not allergic w/ the drug, just sensitive.
[2018-06-15] MEDS ORDERED: IPRATROPIUM NEB FS 0.5 MG/2.5 ML AMPUL.NEB NEB PRN (08:30)
[2018-06-15] MEDS: BLOOD SUGAR DIAGNOSTIC 1 EACH STRIP IN SCH ×4 (08:58→23:27)
[2018-06-15] MEDS ORDERED: FEE PK DOSING 1 MIN EA MC ONE (08:59)
[2018-06-15] MEDS ORDERED: VANCOMYCIN 500 MG in IV D5W 100 ML IV SCH (09:00)
[2018-06-15] MEDS ORDERED: ASPIRIN EC 81 MG TABLET.DR PO SCH (09:00)
[2018-06-15] MEDS: METOPROLOL TARTRATE 25 MG TABLET PO SCH ×2 (09:00→21:00)
[2018-06-15] MEDS: INSULIN REGULAR, HUMAN 100 UNIT/ML 3 ML VIAL SQ PRN ×3 (09:00→17:45)
[2018-06-15] MEDS ORDERED: AMIODARONE HCL 200 MG TABLET PO SCH ×2 (09:00)
[2018-06-15] MEDS: AMIODARONE HCL 200 MG TABLET PO SCH (09:00)
[2018-06-15] MEDS ORDERED: FLECAINIDE ACETATE (100 MG) 100 MG TABLET PO SCH (09:00)
[2018-06-15] MEDS: SPIRONOLACTONE 25 MG TABLET PO SCH (09:00)
[2018-06-15] MEDS: SUCRALFATE 1 G TABLET PO SCH ×4 (09:01→21:25)
[2018-06-15] MEDS: FERROUS SULFATE (325 MG) 325 MG/TAB TABLET PO SCH (09:17)
[2018-06-15] MEDS: APIXABAN 2.5 MG TABLET PO SCH ×2 (09:17→17:09)
[2018-06-15] MEDS: METOCLOPRAMIDE HCL 10 MG TABLET PO SCH ×4 (09:17→21:27)
[2018-06-15] MEDS: PANTOPRAZOLE 40 MG VIAL IV SCH (09:17)
[2018-06-15] MEDS: FENOFIBRATE NANOCRYS (145 MG) 145 MG TABLET PO SCH (09:17)
[2018-06-15] MEDS: DICYCLOMINE HCL 10 MG CAPSULE PO SCH ×3 (09:17→17:09)
--- NOTE | 2018-06-15 09:30 | NUR ---
Pt seen & examined by Dr. Forman and was able to talk to the dtrs at bedside. Dr. Landa updated via text re: pt mental status - responsive to verbal stimuli but still drowsy. Dtr at bedside, said that pt's baseline is A/O x 3. acknowledged.
--- NOTE | 2018-06-15 09:45 | NUR ---
Dr. Forman made aware re: decreased urine output. Pt has sched Aldactone but K is 5. Per MD, hold med at this time. IVF DC'd d/t CHF. Family made aware.
[2018-06-15] MEDS ORDERED: VANCOMYCIN 1 GM in IV D5W 250 ML IV ONE (10:00)
--- NOTE | 2018-06-15 10:00 | NUR ---
Pt seen & examined by Dr. Camejo, was able to talk to the family at bedside. MD made aware re: decreased concentrated urine output. Unable to get urine specimen at this time.
--- NOTE | 2018-06-15 11:38 | NUR ---
PT RECEIVED ORALLY INTUBATED FROM ER AND PLACED BACK ON MECHANICAL VENT W/ SETTINGS PER MD. VENT IN RED OUTLET, AMBUBAG AT BEDSIDE, VENT ALARMS CHECKED AND AUDIBLE. PT SX'ED AND LAVAGED PRN. MEDS GIVEN INLINE PER MD ORDER. BREATH SOUNDS EQUAL, DIMINISHED. ETT SECURED, PATENT AND CLEAN. PLAN IS TO CONTINUE CARE UNDER CURRENT MD ORDERS AND MONITOR FOR CHANGES.
--- NOTE | 2018-06-15 12:00 | NUR ---
Pt is hardstick. Social Services Technician unable to draw blood x 2. Dtrs at bedside. Dtrs also concerned re: possibility of acquiring blood clot on the R Arm (same as what happened to pt's L arm). Dr. Landa made aware if okay to insert PICC line as well as dtrs other concerns. Per MD, it's okay to insert the line however if it is just because pt is difficult to draw blood then ask the lab to send someone who is expert. MD is also okay to do US of the R extremity. Spoke w/ the dtrs at bedside, explained to them what MD & RN talked about, gave them options. Per dtr they would like to proceed w/ the PICC line insertion. Consent signed by one of the dtr & placed in the chart.
[2018-06-15] MEDS: PIPERACILLIN /TAZOBACTAM 3.375 G in IV D5W 50 ML IV SCH ×3 (12:09→23:29)
[2018-06-15] MEDS ORDERED: DIGOXIN 0.25 MG PO SCH (13:00)
[2018-06-15] MEDS ORDERED: Medication Not On Formulary EA ([Rivaroxaban] 15 MG) PO SCH (17:00)
[2018-06-15] MEDS: ATORVASTATIN 40 MG TABLET PO SCH (17:09)
[2018-06-15 18:34] LABS: APPEARANCE,URINE SL CLOUDY (CLEAR); BILIRUBIN,URINE NEGATIVE (NEGATIVE); BLOOD, URINE 3+ Ery/uL (NEGATIVE); COLOR,URINE YELLOW (YELLOW); KETONES,URINE NEGATIVE (NEGATIVE); LEUKOCYTE ESTERASE ,URINE NEGATIVE (NEGATIVE); NITRITE, URINE NEGATIVE (NEGATIVE); PH,URINE 6.5 (5.0-8.0); PROTEIN,URINE TRACE mg/dl (NEGATIVE); UGLUCOSE NEGATIVE (NEGATIVE); UROBILINOGEN,URINE 0.2 EU/dL (0.2)
[2018-06-15 18:41] LABS: CREATININE, URINE 71.9 MG/DL (30.0-125.0)
--- NOTE | 2018-06-15 18:50 | NUR ---
RN CLOSING NOTES: Pt is more A/O. Pt tolerated current MV settings via ETT 7.5, sating at 100%. On telemonitor, still SB. OGT kept patent & intact, clamped at this time. IV line access: ORYER PICC line, L IJ G18 & L hand G22, both SL, flushing well, no s/sx of infection/infiltration noted. FC kept draining to BSB. Cholecystostomy tube kept in place, drained 30cc bilious output. Kept well rested. Needs attended. Bed kept low & in locked pos. Call light placed w/in reach. Dtr at bedside. Will endorse to PM RN for LOLLY.
--- NOTE | 2018-06-15 19:07 | NUR ---
Addendum: Noted cholecystostomy catheter on RUQ abdomen, noted bilious output.
[2018-06-15 19:33] LABS: BACTERIA,URINE Few /HPF (None Seen); SQUAMOUS EPITHELIAL CELL,UR Few /HPF (None Seen)
[2018-06-15 19:39] LABS: RBC,URINE 81-100 /HPF (0-2)
[2018-06-15 19:40] LABS: YEAST,URINE Few /HPF (None Seen)
--- NOTE | 2018-06-15 19:40 | NUR ---
RN NOTES RECEIVED PT ASLEEP ON BED.WITH ETT CONNECTED TO VENT SETTING AC 16, TV 450 FIO2 60% PEEP 5. PT IS AOX 2 ABLE TO EXPRESS NEED. NO SEDATION , NO ACUTE RESP DISTRESS. BILATERAL BREATH SOUND CLEAR SX'D WITH THIN WHITISH SECRETION. STRONG PERIPHERAL PULSES PRESENT. SR-SB ON TELE MONITOR. HR 53 SATURATION 100%. OGT CLAMPED PATENCY CHECKED. NO RESIDUAL. IV SITE ON LIJ G18 SL, LH G 22 SL AND ROYER PICC LINE INTACT AND PATENT W/ GOOD BLOOD RETURN. F/C DRAINING WELL. REPOSITIONED PT COMFORTABLE. PT COUGHED WHEN AWAKE. FAMILY AT BEDSIDE AND PT CALMING DOWN. DAUGHTER AT BEDSIDE. AWARE REGARDING POC,.
[2018-06-15 19:51] LABS: EOSINOPHIL,URINE None Seen
--- NOTE | 2018-06-15 20:18 | NUR ---
RECEIVED PT INTUBATED ON VENT, 7.5 ETT SECURED AT 23CM AT THE LIP. PT IS AWAKE AND FOLLOWS COMMAND. FAMILY AT BEDSIDE. B/S CL/DM. VENT ALARMS SET AND AUDIBLE AMBU BAG AT BEDSIDE. VENT PLUGGED INTO RED OUTLET. WILL CONTINUE TO MONITOR. Addendum: 06/15/18 at 2020 by NAN STEELE RT Amended: Links added.
--- NOTE | 2018-06-15 20:20 | NUR ---
RN NOTES 20:07 PT ASLEEP NOTED QT 60 , SB WITH PROLONG QT HR 53. DENIES ANY PAIN. NO ACUTE RESP DISTRESS. WILL MONITOR CLOSELY
[2018-06-16] VITALS (32 sets, daily range): BP systolic 86–120; BP diastolic 31–68
--- NOTE | 2018-06-16 02:10 | NUR ---
RN NOTES 02:01 AM - NOTED PT FROM SB CONVERTED TO A- FIB HR 55, DENIES CHEST PAIN, NO SOB, SATURATION 100% PT HAS A HISTORY OF A- FIB, PT IS ASYMPTOMATIC, AOX2 CALM AND COOPERATIVE. WILL INFORMED . ROMAN PITTS TO MONITOR CLOSELY.
[2018-06-16 04:52] LABS: CREATINE KINASE, TOTAL 37 U/L (26-192)
[2018-06-16 05:07] LABS: ALBUMIN 2.6 g/dL (3.4-5.0); BILIRUBIN,DIRECT 0.9 mg/dL (0.0-0.2); TOTAL PROTEIN, SERUM 5.2 g/dL (6.4-8.2)
[2018-06-16 05:08] LABS: ALANINE AMINOTRANSFERASE 164 U/L (12-78); ALBUMIN 2.5 g/dL (3.4-5.0); ALKALINE PHOSPHATASE 69 U/L (46-116); ASPARTATE AMINOTRANSFERASE 29 U/L (15-37); CALCIUM, SERUM 8.4 mg/dL (8.5-10.1); CARBON DIOXIDE 24 mmol/L (21-32); CHLORIDE 103 mmol/L (98-107); CREATININE 1.7 mg/dL (0.6-1.3); GLUCOSE 79 mg/dL (74-106); MAGNESIUM 2.3 mg/dL (1.8-2.4); PHOSPHORUS 4.2 mg/dL (2.5-4.9); POTASSIUM 3.9 mmol/L (3.5-5.1); SODIUM SERUM 138 mmol/L (136-145); TOTAL PROTEIN, SERUM 5.2 g/dL (6.4-8.2); UREA NITROGEN, BLOOD 42 mg/dL (7-18)
[2018-06-16] MEDS: PIPERACILLIN /TAZOBACTAM 3.375 G in IV D5W 50 ML IV SCH ×4 (05:40→23:44)
[2018-06-16] MEDS: BLOOD SUGAR DIAGNOSTIC 1 EACH STRIP IN SCH ×4 (05:41→22:00)
[2018-06-16 06:16] LABS: HEMATOCRIT 29 % (33-45); HEMOGLOBIN 9.7 g/dL (11.5-14.8); MEAN CORPUSCULAR HEMOGLOBIN 33 PG (26.0-33.0); MEAN CORPUSCULAR HGB CONC 33 g/dl (31.0-36.0); MEAN CORPUSCULAR VOLUME 100 fL (82-100); RDW COEFFICIENT OF VARIATION 17.5 (11.5-15.0); RED BLOOD CELL COUNT(AUTO) 2.92 MIL/uL (4.0-5.2); WHITE BLOOD COUNT (AUTO) 11.6 K/uL (4.3-11.0)
[2018-06-16 06:17] LABS: BASOPHILS % (AUTO) 0.8 % (0.0-2.0); EOSINOPHILS % (AUTO) 0.9 % (0.0-6.0); LYMPHOCYTES % (AUTO) 7.5 % (20.0-44.0); MONOCYTES % (AUTO) 7.6 % (2.0-12.0); NEUTROPHILS % (AUTO) 83.2 % (43.0-81.0); PLATELET COUNT (AUTO) 205 /CMM (150-450)
--- NOTE | 2018-06-16 06:33 | NUR ---
RN NOTES PT REMAINED IN STABLE CONDITION. ETT AND VENT SETTING TOLERATED WELL, WITHOUT SEDATION MEDS. PT IS AOX2 ABLE TO EXPRESSED FEELINGS. SATURATION 100%, EPISODE OF LOW BLOOD PRESSURE NOTED WHEN PT IN A DEEP SLEEP. PT ASLEEP WELL . BUT CAUGHT UP RIGHT AWAY W/ STIMULI. REMAINED A- FIB CONTROLLED HR 100'S, DR. HUMPHREYS AWARE NNO. ALL IV'S INTACT AND PATENT. ROYER PICC LINE WITH GOOD BLOOD RETURN. CHOLECYSTECTOMY DRAINAGE BAG WITH 150 CC BILIOUS OUTPUT. F/C DRAINED ADEQUATELY. KEPT PT CLEAN AND COMFORTABLE IN BED. PT IS CLEANED AND DRY. CONFORMAL PAD FORMER RESTRAINT KEPT IN PLACED. PT WILL HAVE CT CHEST/ ABDOMEN WITHOUT CONTRAST TODAY IN AM.WILL ENDORSED CONTINUITY OF CARE TO AM NURSE,.
--- NOTE | 2018-06-16 07:10 | NUR ---
RN INITIAL NOTES: Rec'd pt on bed, asleep, not in any distress, A/O x1, follows simple commands. On MV via ETT, sating at 100%. On telemonitor, Afib 100. Has OGT, patent & intact, noted gurgling sound upon auscultation, clamped at this time. Has 3 IV line access: ROYER PICC line, TLC, w/ NS x TKO, L IJ G18, SL & L hand G22, SL, all flushing well, no s/sx of infection/infiltration noted. Has Cholecystostomy catheter intact, draining bilious output. Has FC draining to BSB, draining to adequate UOP. Provided comfort & safety measures. Bed kept low & in locked pos. Call light placed w/in reach. Will cont to monitor & attend pt needs.
--- NOTE | 2018-06-16 07:36 | NUR ---
Pt seen & examined by Dr. Landa, updated about pt's status.
[2018-06-16] MEDS: SUCRALFATE 1 G TABLET PO SCH ×4 (07:45→21:07)
--- NOTE | 2018-06-16 08:01 | NUR ---
Pt seen & examined by Dr. Stephens. Dennis to give Amiodarone.
[2018-06-16] MEDS: FERROUS SULFATE (325 MG) 325 MG/TAB TABLET PO SCH (08:30)
[2018-06-16] MEDS: FENOFIBRATE NANOCRYS (145 MG) 145 MG TABLET PO SCH (08:30)
[2018-06-16] MEDS: SPIRONOLACTONE 25 MG TABLET PO SCH (08:30)
[2018-06-16] MEDS: METOCLOPRAMIDE HCL 10 MG TABLET PO SCH ×4 (08:30→20:48)
[2018-06-16] MEDS: PANTOPRAZOLE 40 MG VIAL IV SCH (08:30)
[2018-06-16] MEDS: APIXABAN 2.5 MG TABLET PO SCH ×2 (08:30→17:18)
[2018-06-16] MEDS: DICYCLOMINE HCL 10 MG CAPSULE PO SCH ×3 (08:31→17:16)
[2018-06-16] MEDS: AMIODARONE HCL 200 MG TABLET PO SCH (08:31)
[2018-06-16 08:59] LABS: ABG BASE EXCESS -1.6 mmol/L; ABG PCO2 27.2 mmHg (35.0-45.0); AaDO2 67.9 mmHg; COHb 0.3 % (0.5-1.5); MetHb 0.9 % (0.0-1.5); O2Hb 96.8 % (94.0-97.0); PEEP,BG 5 cm H2O; SITE, ABG Left Brachial; VT, ABG 450 mL
[2018-06-16] MEDS: METOPROLOL TARTRATE 25 MG TABLET PO SCH ×2 (09:00→20:49)
[2018-06-16] MEDS: VANCOMYCIN 500 MG in IV D5W 100 ML IV SCH (09:28)
--- NOTE | 2018-06-16 09:32 | NUR ---
Pt seen & examined by Dr. Carter w/ orders to put pt on CPAP PS 10. RT made aware.
--- NOTE | 2018-06-16 10:45 | NUR ---
RT PER DR WAGONER ORDER PATIENT WAS WEANED ON VENTILATOR AND EXTUBATED. PATIENT PLACED ON 2L N/C JORDON WELL. PATIENT AWAKE RESPONSIVE AND IN NO RESPIRATORY DISTRESS AT THIS TIME. WILL CONTINUE TO MONITOR CLOSELY.
--- NOTE | 2018-06-16 11:12 | NUR ---
FIRST PRESS OPERATOR NOTES SPOKE WITH DR AREVALO , ORDER TO DC AMIODARONE ORDERED , ORDER CARRIED OUT.
[2018-06-16] MEDS ORDERED: DC PROPOFOL WHEN EXTUBATED XX PRN (11:30)
[2018-06-16] MEDS ORDERED: DEXTROSE 50%-WATER 50 ML DISP.SYRIN IV PRN (12:00)
[2018-06-16] MEDS: INSULIN REGULAR, HUMAN 100 UNIT/ML 3 ML VIAL SQ PRN ×3 (12:21→22:30)
--- NOTE | 2018-06-16 12:21 | NUR ---
Dr. Landa updated pt s/p extubated. Swallow eval done w/ recommendation of PUREED diet w/ HTL & change of sliding scale to (mild) ACHS. MD agreed.
--- NOTE | 2018-06-16 14:00 | NUR ---
Dr. Landa talked to the family at bedside also over the phone re: pt's current status & POC. All questions & concerns answered by MD. Per MD, okay to change dressing of the cholecystostomy. However, dressing noted to be different. Site is free from s/sx of infection. Dressing reinforced at this time.
[2018-06-16] MEDS: ATORVASTATIN 40 MG TABLET PO SCH (17:16)
[2018-06-16] MEDS: NYSTATIN (PYXIS) 500,000 UNIT/5 ML ORAL.SUSP PO SCH (17:18)
--- NOTE | 2018-06-16 18:32 | NUR ---
RN CLOSING NOTES: Pt is A/O x 1-2, not in any distress s/p extubation. Pt tolerating NC at 2lpm, sating at 100%. On telemonitor, Afib. 2 IV line access: ROYER PICC line, TLC, w/ NS x TKO & L hand G22, SL, all flushing well, no s/sx of infection/infiltration noted. Cholecystostomy catheter kept clean, dry & intact, draining bilious output. FC draining to BSB, draining to adequate UOP. Kept well rested. Needs attended. Bed kept low & in locked pos. Call light placed w/in reach. Will endorse to PM RN for LOLLY.
--- NOTE | 2018-06-16 22:00 | NUR ---
TAIL TRIMMER - REC'D PT. SITTING IN HIGH FOWLERS. A&OX2, PLEASANT, HONDURAN PT. SPEAKS SOME BROKEN [place]. ENOUGH TO COMMUNICATE. MARITES-TUBE SPLICER HAS TRANSLATED IN TAGALOG LANGUAGE FOR RN. COMPLETE BEDBATH DONE EARLY W/ORAL,COLLEEN & SKIN CARE RENDERED. PT'S DAUGHTER-BRYAN WAS AT BEDSIDE FOR A LITTLE WHILE. STATUS UP - DATE GIVEN TO HER. DAUGHTER STATES SHE IS SATISFIED W/CARE GIVEN. LOPRESSOR MED HELD DUE TO SBP'S IN THE 90'S. BLOOD SUGAR IS #126-NO COVERAGE NEEDED. BARR CATH TO GRAVITY. LUE IS SWOLLEN W/+ DVT. [place]. DAUGHTER HAS HEARING AID & DENTURES. AFEBRILE. ALL PULSES PALPABLE X 4 EXT. ALL EXT. X 4 ARE OFFLOADED ON PILLOWS. PT. WAS FED VANILLA ICE CREAM W/O INCIDENCE. PT. ON O2/2L/NC. NO DISTRESS NOTED. PT.IS S/P EXTUB- ATION FROM TODAY. HEART MONITOR SHOWS UNCONT./CONT. AFIB. SBP'S ARE STABLE. CONT. POC.
[2018-06-17] VITALS (33 sets, daily range): BP systolic 89–132; BP diastolic 37–85
[2018-06-17 05:00] LABS: BASOPHILS % (AUTO) 0.5 % (0.0-2.0); EOSINOPHILS % (AUTO) 2.1 % (0.0-6.0); HEMATOCRIT 29 % (33-45); HEMOGLOBIN 9.3 g/dL (11.5-14.8); LYMPHOCYTES # (AUTO) 0.9 /CMM (0.8-4.8); LYMPHOCYTES % (AUTO) 10.4 % (20.0-44.0); MEAN CORPUSCULAR HEMOGLOBIN 33 PG (26.0-33.0); MEAN CORPUSCULAR HGB CONC 32 g/dl (31.0-36.0); MEAN CORPUSCULAR VOLUME 103 fL (82-100); MONOCYTES # (AUTO) 0.9 /CMM (0.1-1.30); MONOCYTES % (AUTO) 10.3 % (2.0-12.0); NEUTROPHILS # (AUTO) 6.9 /CMM (1.8-8.9); NEUTROPHILS % (AUTO) 76.7 % (43.0-81.0); PLATELET COUNT (AUTO) 234 /CMM (150-450); RED BLOOD CELL COUNT(AUTO) 2.87 MIL/uL (4.0-5.2)
[2018-06-17] MEDS: PIPERACILLIN /TAZOBACTAM 3.375 G in IV D5W 50 ML IV SCH ×3 (05:11→17:23)
[2018-06-17 05:12] LABS: CALCIUM, SERUM 8.4 mg/dL (8.5-10.1); CARBON DIOXIDE 26 mmol/L (21-32); CHLORIDE 108 mmol/L (98-107); CREATININE 1.1 mg/dL (0.6-1.3); GLUCOSE 92 mg/dL (74-106); POTASSIUM 3.6 mmol/L (3.5-5.1); SODIUM SERUM 142 mmol/L (136-145); UREA NITROGEN, BLOOD 24 mg/dL (7-18)
--- NOTE | 2018-06-17 06:41 | NUR ---
SECONDARY EDUCATION PROFESSOR - PT. HAS BEEN RESTING COMFORTABLY AFTER BEDBATH LAST NIGHT. VSS. PT. REMAINS IN AFIB RHYTHM. 900CC OUT OF BARR CATHETER & 100 CC/OUT OF CHOLECYSTOSTOMY DRAINAGE BAG. NO OTHER CHANGES SINCE LAST NOTE. REPORT VERBALLY ENDORSED TO DAYSHIFT RN FOR LOLLY.
[2018-06-17] MEDS: BLOOD SUGAR DIAGNOSTIC 1 EACH STRIP IN SCH ×4 (07:48→21:15)
[2018-06-17] MEDS: SUCRALFATE 1 G TABLET PO SCH ×4 (07:54→22:35)
[2018-06-17] MEDS: NYSTATIN (PYXIS) 500,000 UNIT/5 ML ORAL.SUSP PO SCH ×3 (08:05→17:22)
[2018-06-17] MEDS: PANTOPRAZOLE 40 MG VIAL IV SCH (08:05)
--- NOTE | 2018-06-17 08:05 | NUR ---
INITIAL PERSONAL CARE WORKER NOTE RCVD PT AWAKE AND ALERT, SHOWING NO S/O DISTRESS, AFIB CONTROLLED ON MONITOR. TOLERATING O2 VIA NC. BARR DRAINING TO GRAVITY WITH CLEAR, PALE, YELLOW URINE. IV SITE C/D/I/PATENT. NO S/O INFILTRATION/PHLEBITIS OBSERVED UPON FLUSHING. TOLERATING PUREED DIET WITH HONEY THICK LIQUIDS WELL. RIGHT CHOLECYSTECTOMY BAG IN PLACE.DRESSING C/D/I, DRAINING YELLOW COLORED FLUID. WILL CONTINUE TO MONITOR PT FOR SAFETY AND COMFORT. BED IN LOW AND LOCKED POSITION. CALL LIGHT WITHIN REACH.
[2018-06-17] MEDS: APIXABAN 2.5 MG TABLET PO SCH ×2 (08:07→17:22)
[2018-06-17] MEDS: FERROUS SULFATE (325 MG) 325 MG/TAB TABLET PO SCH (08:07)
[2018-06-17] MEDS: METOCLOPRAMIDE HCL 10 MG TABLET PO SCH ×2 (08:07→12:02)
[2018-06-17] MEDS: SPIRONOLACTONE 25 MG TABLET PO SCH (08:07)
[2018-06-17] MEDS: DICYCLOMINE HCL 10 MG CAPSULE PO SCH ×3 (08:07→17:22)
[2018-06-17] MEDS: METOPROLOL TARTRATE 25 MG TABLET PO SCH ×2 (08:07→21:00)
[2018-06-17] MEDS: HYDROCODONE/APAP 5/325MG 1 EACH TABLET PO PRN (08:08)
[2018-06-17] MEDS ORDERED: METOPROLOL TARTRATE 25 MG TABLET PO SCH (09:00)
[2018-06-17] MEDS: METOPROLOL TARTRATE 25 MG TABLET PO ONE ×2 (09:20→09:38)
--- NOTE | 2018-06-17 09:34 | NUR ---
ARTIFICIAL FLOWER MAKER NOTE PT'S DAUGHTER MARIAH CALLED SHE WAS UPDATED ON PT'S CONDITION. PT INFORMED. DR. AREVALO CONTACTED REGARDING PARAMETERS FOR INCREASED METOPROLOL DOSE HE RECOMMENDED TO HOLD FOR SBP <100 WILL CONTINUE TO MONITOR.
[2018-06-17] MEDS: VANCOMYCIN 500 MG in IV D5W 100 ML IV SCH (09:37)
[2018-06-17] MEDS: INSULIN REGULAR, HUMAN 100 UNIT/ML 3 ML VIAL SQ PRN (12:21)
[2018-06-17] MEDS: LINEZOLID 600 MG TABLET PO SCH ×2 (15:43→23:40)
[2018-06-17] MEDS ORDERED: METOCLOPRAMIDE HCL 10 MG TABLET PO SCH (17:00)
[2018-06-17] MEDS: ACETAMINOPHEN 325 MG TABLET PO PRN (17:36)
--- NOTE | 2018-06-17 18:10 | NUR ---
VETERINARY SURGERY TECHNOLOGIST NOTE PT RECEIVED FROM ICU IN STABLE CONDITION. PT'S DAUGHTERS AT BEDSIDE. ON 2L VIA NC WITH GOOD SATURATION. REMAINED AFIB ON MONITOR. BARR DISCONTINUED BY VETERINARY SURGERY TECHNOLOGIST. IV SITES C/D/I/PATENT, REMOVED LEFT HAND IV PER REQUEST. NO S/O INFILTRATION/PHLEBITIS OBSERVED UPON FLUSHING. PT'S DINNER TRAY PROVIDED . PT'S BELONGINGS AT BEDSIDE, WILL ENDORSE TO NEXT SHIFT FOR CONTINUITY OF CARE Addendum: 06/17/18 at 1919 by CHELY GOOD RN TABULATING MACHINE MECHANIC TRANSFER, FLIGHT TECHNICIAN NOTE
--- NOTE | 2018-06-17 18:20 | NUR ---
POINTER MACHINE OPERATOR NOTE PT TRANSFERRED TO [facility] FLOOR ROOM 325-1 VIA BED IN STABLE CONDITION. PT'S DAUGHTERS AT BEDSIDE. ON 2L VIA NC WITH GOOD SATURATION. REMAINED AFIB ON MONITOR. BARR DISCONTINUED ORDERED. IV SITES C/D/I/PATENT. NO S/O INFILTRATION/PHLEBITIS OBSERVED UPON FLUSHING. PT'S DINNER TRAY TAKEN TO PT'S ROOM. PT'S BELONGINGS PACKED BY PT'S DAUGHTER, BRYAN. PT'S CARE ENDORSED TO [place]
--- NOTE | 2018-06-17 19:42 | NUR ---
CONTROL INTEGRATION ENGINEER OPENING NOTES PT AWAKE AND ALERT, SITTING IN BED, SEMI-FOWLERS. PT IN ROOM AIR, SATURATING WELL AT 98%, NO SIGNS OF DISTRESS. CARDIAC MONITORING IN PLACED SHOWS A.FIB AT 85 BPM. DENIES ANY PAIN. RIGHT UPPER PICC LINE PATENT AND INTACT, NO SIGNS OF BLEEDING OR INFECTION. SAFETY MEASURES IN PLACED, CALL LIGHT WITHIN REACH. WILL CONTINUE TO MONITOR.
--- NOTE | 2018-06-17 19:48 | NUR ---
RN NOTES/ BP PT BP IS 109/37, TAKEN FROM THE LOWER LEG. PT IS ASYMPTOMATIC, NO SIGNS OF DISTRESS. WILL CONTINUE TO MONITOR PT
--- NOTE | 2018-06-17 20:46 | NUR ---
spoke to Monica in pharmacy regarding zyvox medication. last administration time was 1545 and it's q12hrs. per Monica it's ok to give the medication around midnight.
[2018-06-17] MEDS ORDERED: LEVOFLOXACIN (250MG) 250 MG TABLET PO SCH (21:00)
[2018-06-17] MEDS ORDERED: LINEZOLID 600 MG TABLET PO SCH (21:00)
--- NOTE | 2018-06-17 21:15 | NUR ---
RN NOTES/ BLOOD SUGAR BLOOD SUGAR WAS 125, NO COVERAGE GIVEN PER PROTOCOL
--- NOTE | 2018-06-17 21:15 | NUR ---
RN NOTES/ BP MED BP MED HELD PT BP IS 93/50 TAKEN ON THE LOWER LEG. HR IS 100. WILL CONTINUE TO CLOSELY MONITOR THE PT
[2018-06-18] VITALS: BP 96/42
[2018-06-18 00:42] VITALS: BP 96/42
[2018-06-18 04:00] VITALS: BP_SYST 101; BP_DIAS 54; BP_DIAS 64
[2018-06-18] MEDS ORDERED: VANCOMYCIN 500 MG in IV D5W 100 ML IV SCH (04:00)
--- NOTE | 2018-06-18 06:20 | NUR ---
RN NOTES/ AM BLOOD SUGAR BLOOD SUGAR AT 95, NO INSULIN COVERAGE GIVEN PER MD ORDER AND SLIDING SCALE
--- NOTE | 2018-06-18 06:24 | NUR ---
RN CLOSING NOTES PT ASLEEP COMFORTABLY. PT IN O2 VIA NASAL CANNULA AT 2L, NO SIGNS OF DISTRESS. CARDIAC MONITORING IN PLACED SHOWS A.FLUTTER AT 93 BPM. DENIES ANY PAIN. RIGHT UPPER PICC LINE PATENT AND INTACT, NO SIGNS OF BLEEDING OR INFECTION. RIGHT UPPER CHOLECYSTOSTOMY INTACT AND PATENT, DRAINAGE OF 125cc. VRE ISOLATION IN PLACED. SAFETY MEASURES IN PLACED, CALL LIGHT WITHIN REACH. WILL ENDORSE CONTINUITY OF CARE TO THE ONCOMING NURSE
[2018-06-18] MEDS: BLOOD SUGAR DIAGNOSTIC 1 EACH STRIP IN SCH ×4 (06:27→21:25)
--- NOTE | 2018-06-18 07:20 | NUR ---
BATTERY VENT PLUG INSERTER INITIAL NOTES Report received at bedside. Patient received in bed, intermittently sleeping, easily aroused. Alert and oriented, verbally responsive. Denies any pain at the moment. On contact isolation for VRE. On continuous oxygen therapy with no SOB/labored breathing noted. Not in any type of distress. Safety measures in place. Will continue to monitor and assess patient
[2018-06-18] MEDS ORDERED: ALENDRONATE 35 MG TABLET PO SCH (07:30)
[2018-06-18 08:00] VITALS: BP_SYST 115; BP_SYST 132; BP_DIAS 64; BP_DIAS 80
[2018-06-18] MEDS: SUCRALFATE 1 G TABLET PO SCH ×4 (08:41→21:18)
[2018-06-18] MEDS: LINEZOLID 600 MG TABLET PO SCH ×2 (08:41→21:18)
[2018-06-18] MEDS: DICYCLOMINE HCL 10 MG CAPSULE PO SCH ×3 (08:42→17:17)
[2018-06-18] MEDS: NYSTATIN (PYXIS) 500,000 UNIT/5 ML ORAL.SUSP PO SCH ×3 (08:42→17:15)
[2018-06-18] MEDS: PANTOPRAZOLE 40 MG VIAL IV SCH (08:42)
[2018-06-18] MEDS: FERROUS SULFATE (325 MG) 325 MG/TAB TABLET PO SCH (08:42)
[2018-06-18] MEDS: SPIRONOLACTONE 25 MG TABLET PO SCH (08:42)
[2018-06-18] MEDS: METOPROLOL TARTRATE 25 MG TABLET PO SCH ×2 (08:43→21:00)
[2018-06-18] MEDS: APIXABAN 2.5 MG TABLET PO SCH ×2 (08:47→17:15)
--- NOTE | 2018-06-18 12:17 | NUR ---
MS RN - BS NOTES BS 122 - No coverage given
[2018-06-18] MEDS: ACETAMINOPHEN 325 MG TABLET PO PRN (15:24)
--- NOTE | 2018-06-18 15:24 | NUR ---
MS RN - PRN NOTES Patient complaints of abdominal discomfort/pain of 3/10 and requested for tylenol. Will reassess for effectiveness
--- NOTE | 2018-06-18 15:31 | NUR ---
MS RN - NEW NOTES MD made aware of hard stools with new order of colace 100 TID Okay for GI Eval (per Yenni Shen's recommendation)
[2018-06-18 16:00] VITALS: BP 94/54
--- NOTE | 2018-06-18 16:00 | NUR ---
MS RN - CONSULT NOTES GI MD at bedside for GI eval. Made aware of patient's complaints of bilat lower extremities cramps/pain/discomfort.
[2018-06-18] MEDS: MAG HYDROX/AL HYDROX/SIMETH 30 ML UDC PO PRN (17:17)
[2018-06-18] MEDS: DOCUSATE SODIUM 100 MG CAPSULE PO SCH (17:31)
--- NOTE | 2018-06-18 18:46 | NUR ---
MS RN CLOSING NOTES Patient just got transferred back to bed to do bladder ultrasound. Alert and oriented x3-4, verbally responsive. Not in any type of distress. SpO2 @97 in room air with no SOB/labored breathing noted. Family at bedside. Remained on contact isolation for VRE. Continue on antibiotics. Cholecystostomy drain: 50cc collected. Patient transfers from bed to chair with assist. Afebrile. All needs anticipated and met. Bed in lowest position with call light within reach. Will endorse to oncoming shift nurse
--- NOTE | 2018-06-18 19:30 | NUR ---
MS/RN OPENING NOTES PT AWAKE, FAMILY AT BEDSIDE. ON ROOM AIR, BREATHING EVEN AND UNLABORED. NO S/S OF SOB OR ACUTE DISTRESS. RIGHT SIDED CHOLECYSTOMY IN PLACE AND DRAINING WELL. ROYER PICC LINE PATENT AND INTACT. BED IN LOW/LOCKED POSITION, CALL LIGHT IN REACH AND BILATERAL UPPER SIDE RAILS IN PLACE. WILL CONTINUE TO MONITOR
[2018-06-18 20:00] VITALS: BP 118/64
[2018-06-18] MEDS: INSULIN REGULAR, HUMAN 100 UNIT/ML 3 ML VIAL SQ PRN (21:34)
[2018-06-19] MEDS: BLOOD SUGAR DIAGNOSTIC 1 EACH STRIP IN SCH ×4 (06:30→21:09)
[2018-06-19] MEDS: SUCRALFATE 1 G TABLET PO SCH ×4 (06:30→21:08)
[2018-06-19] MEDS: ACETAMINOPHEN 325 MG TABLET PO PRN ×2 (06:31→15:38)
--- NOTE | 2018-06-19 06:38 | NUR ---
MS/RN CLOSING NOTES PT AWAKE, RESTING COMFORTABLY IN BED. ON ROOM AIR, BREATHING EVEN AND UNLABORED. NO S/S OF SOB OR ACUTE DISTRESS. RIGHT SIDED CHOLECYSTOMY IN PLACE AND DRAINING WELL. 75CC OUTPUT. ASSISTED TO BSC TOLERATED. ISOLATION PRECAUTIONS IMPLEMENTED THROUGHOUT SHIFT. ROYER PICC LINE PATENT AND INTACT. BED REMAINS IN LOW/LOCKED POSITION, CALL LIGHT IN REACH AND BILATERAL UPPER SIDE RAILS IN PLACE. NO SIGNIFICANT CHANGES OVERNIGHT. KEPT PT COMFORTABLE. ALL NEEDS MET. WILL ENDORSE TO DAY SHIFT RN LOLLY.
--- NOTE | 2018-06-19 06:38 | NUR ---
MS/RN NOTES PT C/O ABDOMINAL PAIN. REQUESTING TYLENOL. ADMINISTERED ORDERED.
[2018-06-19 08:00] VITALS: BP 110/73
[2018-06-19 09:31] LABS: BASOPHILS # (AUTO) 0.1 /CMM (0.0-0.2); BASOPHILS % (AUTO) 0.9 % (0.0-2.0); EOSINOPHILS % (AUTO) 2.7 % (0.0-6.0); HEMATOCRIT 36 % (33-45); HEMOGLOBIN 11.3 g/dL (11.5-14.8); LYMPHOCYTES # (AUTO) 1.1 /CMM (0.8-4.8); LYMPHOCYTES % (AUTO) 15.8 % (20.0-44.0); MEAN CORPUSCULAR HEMOGLOBIN 33 PG (26.0-33.0); MEAN CORPUSCULAR HGB CONC 32 g/dl (31.0-36.0); MEAN CORPUSCULAR VOLUME 104 fL (82-100); MONOCYTES # (AUTO) 0.7 /CMM (0.1-1.30); MONOCYTES % (AUTO) 10.1 % (2.0-12.0); NEUTROPHILS % (AUTO) 70.5 % (43.0-81.0); PLATELET COUNT (AUTO) 321 /CMM (150-450); RDW COEFFICIENT OF VARIATION 19.5 (11.5-15.0); RED BLOOD CELL COUNT(AUTO) 3.42 MIL/uL (4.0-5.2); WHITE BLOOD COUNT (AUTO) 7.1 K/uL (4.3-11.0)
[2018-06-19 09:48] LABS: ALANINE AMINOTRANSFERASE 102 U/L (12-78); ALKALINE PHOSPHATASE 67 U/L (46-116); ASPARTATE AMINOTRANSFERASE 17 U/L (15-37); BILIRUBIN,TOTAL 1.3 mg/dL (0.2-1.0); CALCIUM, SERUM 8.6 mg/dL (8.5-10.1); CARBON DIOXIDE 24 mmol/L (21-32); CHLORIDE 106 mmol/L (98-107); GLUCOSE 133 mg/dL (74-106); LIPASE 483 U/L (73-393); POTASSIUM 3.9 mmol/L (3.5-5.1); SODIUM SERUM 139 mmol/L (136-145); TOTAL PROTEIN, SERUM 6.2 g/dL (6.4-8.2); UREA NITROGEN, BLOOD 11 mg/dL (7-18)
[2018-06-19] MEDS: DOCUSATE SODIUM 100 MG CAPSULE PO SCH ×3 (10:21→17:00)
[2018-06-19] MEDS: FERROUS SULFATE (325 MG) 325 MG/TAB TABLET PO SCH (10:22)
[2018-06-19] MEDS: METOPROLOL TARTRATE 25 MG TABLET PO SCH ×2 (10:22→21:09)
[2018-06-19] MEDS: LINEZOLID 600 MG TABLET PO SCH ×2 (10:22→21:08)
[2018-06-19] MEDS: DICYCLOMINE HCL 10 MG CAPSULE PO SCH ×3 (10:22→17:01)
[2018-06-19] MEDS: PANTOPRAZOLE 40 MG VIAL IV SCH (10:23)
[2018-06-19] MEDS: NYSTATIN (PYXIS) 500,000 UNIT/5 ML ORAL.SUSP PO SCH ×3 (10:23→17:00)
[2018-06-19] MEDS: SPIRONOLACTONE 25 MG TABLET PO SCH (10:23)
[2018-06-19] MEDS: MAG HYDROX/AL HYDROX/SIMETH 30 ML UDC PO PRN ×2 (10:23→20:23)
[2018-06-19] MEDS: APIXABAN 2.5 MG TABLET PO SCH ×2 (10:26→17:36)
[2018-06-19 16:00] VITALS: BP 102/64
--- NOTE | 2018-06-19 19:35 | NUR ---
MS RN NOTES RECEIVED SITTING ON BEDSIDE CHAIR,A/O X4,PICC LINE [address],GB DRAINS IN PLACE DRAINING GREENISH OUTPUT. CONTACT ISOLATION PRECAUTION FOR VRE GASTRIC FLUID.FAMILY MEMBERS AT BEDSIDE.DVT IN PUMP IN USED FOR DVT PROPHYLAXIS.CALL LIGHT IN REACH,NEEDS ANTICIPATED.
[2018-06-19 20:00] VITALS: BP 116/61
--- NOTE | 2018-06-19 20:23 | NUR ---
MS RN NOTES C/O ACID REFLUX,MAALOX 30ML PO GIVEN ORDERED
--- NOTE | 2018-06-19 22:00 | NUR ---
MS RN NOTES ACCU-CHECK BLOOD SUGAR CHECK 123,NO INSULIN COVERAGE.
--- NOTE | 2018-06-20 02:00 | NUR ---
MS RN NOTES SOUND ASLEEP,KEPT WARM AND COMFORTABLE.
--- NOTE | 2018-06-20 05:15 | NUR ---
MS RN NOTES ACCU-CHECK BLOOD SUGAR CHECK 99,NO INSULIN COVERAGE.
[2018-06-20] MEDS: BLOOD SUGAR DIAGNOSTIC 1 EACH STRIP IN SCH ×3 (05:23→17:33)
--- NOTE | 2018-06-20 05:30 | NUR ---
MS RN NOTES MORNING CARE RENDERED,TOLERATED WELL.
[2018-06-20] MEDS: MAG HYDROX/AL HYDROX/SIMETH 30 ML UDC PO PRN (05:39)
--- NOTE | 2018-06-20 05:39 | NUR ---
MS RN NOTES HAD A FEELING OF ACID REFLUX.MAALOX 30ML PO GIVEN PER PATIENT REQUEST.
--- NOTE | 2018-06-20 06:13 | NUR ---
MS RN NOTES FAIRLY RESTED,REMAINS ON ISOLATION PRECAUTION,AWAITING URINE CULTURE RESULT.D/C PLAN TO [facility] VS HOME WITH HOME HEALTH.IN NO ACUTE DISTRESS.CALL LIGHT IN REACH,NEEDS ATTENDED.WILL ENDORSE TO DAY NURSE FOR LOLLY.
[2018-06-20] MEDS: ACETAMINOPHEN 325 MG TABLET PO PRN ×2 (06:29→12:43)
--- NOTE | 2018-06-20 06:29 | NUR ---
MS RN NOTES C/O EPIGASTRIN PAIN 3/10 ON PAIN SCALE.TYLENOL 650MG PO GIVEN PER PATIENT REQUEST.
--- NOTE | 2018-06-20 07:10 | NUR ---
MS RN INITIAL NOTES Report received. Patient received in bed, sleeping, easily aroused. No facial grimacing and moaning noted. Not in any type of distress. On contact isolation for VRE (gastric). No SOB/labored breathing noted. Safety measures in place. Will continue to monitor and assess patient
[2018-06-20] MEDS: SUCRALFATE 1 G TABLET PO SCH ×3 (07:57→17:35)
[2018-06-20 08:00] VITALS: BP 98/51
[2018-06-20] MEDS: SPIRONOLACTONE 25 MG TABLET PO SCH (08:19)
[2018-06-20] MEDS: DICYCLOMINE HCL 10 MG CAPSULE PO SCH ×3 (08:19→16:25)
[2018-06-20] MEDS: NYSTATIN (PYXIS) 500,000 UNIT/5 ML ORAL.SUSP PO SCH ×3 (08:19→16:24)
[2018-06-20] MEDS: FERROUS SULFATE (325 MG) 325 MG/TAB TABLET PO SCH (08:19)
[2018-06-20] MEDS: DOCUSATE SODIUM 100 MG CAPSULE PO SCH ×3 (08:19→16:24)
[2018-06-20] MEDS: LINEZOLID 600 MG TABLET PO SCH (08:19)
[2018-06-20] MEDS: PANTOPRAZOLE 40 MG VIAL IV SCH (08:19)
[2018-06-20] MEDS: METOPROLOL TARTRATE 25 MG TABLET PO SCH (08:20)
--- NOTE | 2018-06-20 08:45 | NUR ---
MS RN NOTES MD at bedside - aware of epigastric and lower extremities pain/discomfort. PT and General surgeon consult ordered.
[2018-06-20] MEDS: APIXABAN 2.5 MG TABLET PO SCH ×2 (08:59→16:24)
[2018-06-20 09:52] LABS: ALANINE AMINOTRANSFERASE 89 U/L (12-78); ALKALINE PHOSPHATASE 70 U/L (46-116); ASPARTATE AMINOTRANSFERASE 21 U/L (15-37); BILIRUBIN,TOTAL 1.2 mg/dL (0.2-1.0); CALCIUM, SERUM 8.5 mg/dL (8.5-10.1); CARBON DIOXIDE 23 mmol/L (21-32); CHLORIDE 105 mmol/L (98-107); CREATININE 1.3 mg/dL (0.6-1.3); GLUCOSE 148 mg/dL (74-106); POTASSIUM 4.3 mmol/L (3.5-5.1); SODIUM SERUM 138 mmol/L (136-145); TOTAL PROTEIN, SERUM 6.1 g/dL (6.4-8.2); UREA NITROGEN, BLOOD 16 mg/dL (7-18)
[2018-06-20 09:54] LABS: TROPONIN I < 0.017 ng/mL (0.00-0.056)
--- NOTE | 2018-06-20 10:49 | NUR ---
MS RN - NOTES Spoke to Dr. Brandt - zarina BISHOP, okay to go home with Cholecystostomy, arrange to remove cholecystostomy in 6 weeks. No surgery/removal necessary at this time
[2018-06-20] MEDS: INSULIN REGULAR, HUMAN 100 UNIT/ML 3 ML VIAL SQ PRN (12:45)
--- NOTE | 2018-06-20 13:04 | NUR ---
MS RN - DISCHARGE NOTES Patient is cleared by MD to be discharge to [facility]. Spoke to Nicole (dtr) and inform her regarding discharge orders. Questions and concerns addressed
[2018-06-20] MEDS: HYDROCODONE/APAP 5/325MG 1 EACH TABLET PO PRN (15:53)
--- NOTE | 2018-06-20 15:54 | NUR ---
MS RN - PRN NOTES Pt complained of 8/10 pain on medial/upper abdominal area. Daughter insisted to give [place]. Pain mgmt given. Will assess for effectiveness.
[2018-06-20 16:00] VITALS: BP 117/63
--- NOTE | 2018-06-20 16:45 | NUR ---
MS RN - NOTES Oxygen Equipment Aide paged to report Echo result. Awaiting for call back
--- NOTE | 2018-06-20 18:15 | NUR ---
MS RN NOTES Spoke to MD regarding echo result. Clear for discharge per MD.
--- NOTE | 2018-06-20 19:29 | NUR ---
MS TANDEM MILL STICKER NURSE Patient discharged [facility] in stable condition via stretcher by Agueda. Not in any type of distress. Afebrile. Discharge instructions given to patient and daughters; verbalized understanding. Questions and concerns addressed. Discharge papers provided to daughters. Belongings received and signed by Nicole (Daughter). All needs anticipated and met.
== END 2018-06-20 19:25 | DRG 871 ==
LOC: ER 00:30 → TELE1 03:31 → ICU 05:53 → TELE 06-17 17:56 → MED 06-18 09:52
PROVIDERS: ADMIT Registered Nurse; ATTEND Registered Nurse
PROC: 5A1945Z Respiratory Ventilation, 24-96 Consecutive Hours (ICD-10-PCS; principal; 2018-06-15)
PROC: 0BH17EZ Insertion of Endotracheal Airway into Trachea, Via Natural or Artificial Opening (ICD-10-PCS; 2018-06-15)
PROC: 02HV33Z Insertion of Infusion Device into Superior Vena Cava, Percutaneous Approach (ICD-10-PCS; 2018-06-15)
PROC: B548ZZA Ultrasonography of Superior Vena Cava, Guidance (ICD-10-PCS; 2018-06-15)
DX: A41.9 Sepsis, unspecified organism (principal); I50.33 Acute on chronic diastolic (congestive) heart failure; J96.01 Acute respiratory failure with hypoxia; J96.02 Acute respiratory failure with hypercapnia; J18.9 Pneumonia, unspecified organism; K85.90 Acute pancreatitis without necrosis or infection, unspecified; D68.59 Other primary thrombophilia; N39.0 Urinary tract infection, site not specified; J90 Pleural effusion, not elsewhere classified; I82.622 Acute embolism and thrombosis of deep veins of left upper extremity; K21.9 Gastro-esophageal reflux disease without esophagitis
CPT/HCPCS: 31720; 36415; 36600; 71045-TC; 71250-TC; 74018; 76705-TC; 76856-TC; 80048-TC; 80053-TC; 80061-TC; 80074; 80076-TC; 80162-TC; 80202-TC; 81000-TC; 82150-TC; 82550-TC; 82570-TC; 82803-TC; 82962-TC; 83605-TC; 83690-TC; 83735-TC; 84100-TC; 84155-TC; 84300-TC; 84484-TC; 85025-TC; 85730-TC; 87040-TC; 87070-TC; 87081-TC; 87086-TC; 87186-TC; 92526; 92611-TC; 93307-TC; 94002-TC; 94003-TC; 94760-TC; 94799-TC; 97110-TC; 97116-TC; 97530-TC; 99082-TC; A4606; C1751; C9113; J1815; J2543; J3370; J3490; J7030; J7040; J7050; J7060; J8597; Q9967; Z7610